=== PATIENT | male | born 1950 ===

== ENCOUNTER 2017-03-11 10:19 | Inpatient (IN) | payer MEDICARE, OTHER ==
--- NOTE | 2017-03-11 11:05 | CT ---
PROCEDURE: CT HEAD WITHOUT CONTRAST. HISTORY: code stroke COMPARISON: None available. TECHNIQUE: Axial computed tomography images were obtained through the head/brain without intravenous contrast. Radiation dose: Total exam DLP = 1210.48 mGy-cm. This CT exam was performed using one or more of the following dose reduction techniques: Automated exposure control, adjustment of the mA and/or kV according to patient size, and/or use of iterative reconstruction technique. FINDINGS: HEMORRHAGE: No intracranial hemorrhage. BRAIN: Diffuse expansion of the ventriculosulcal and cisternal spaces is appreciated with white matter lucency compatible with diffuse cerebral atrophy and chronic microangiopathy. No cortical edema or mass-effect is identified. A small chronic lacune is suspected in the right caudate head. There is no suspicious extra-axial fluid collection. Posterior fossa contents appear grossly nonfocal. VENTRICLES: Unremarkable. No hydrocephalus. CALVARIUM: Unremarkable. PARANASAL SINUSES: Unremarkable as visualized. No significant inflammatory changes. MASTOID AIR CELLS: Unremarkable as visualized. No inflammatory changes. OTHER FINDINGS: None. IMPRESSION: 1. No definite acute intracranial findings including those that might indicate acute or subacute brain infarction at this time. 2. 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 3. Mild age related neuro degenerative change identified. Findings discussed with Dr. East 03/11/2017 at 10:58 a.m. with written down and read back verification.
[2017-03-11 11:23] LABS: BASO # 0.1 K/uL (0.0-0.2); BASO % 1.1 % (0.0-2.0); EOS # 0.4 K/uL (0.0-0.7); EOS % 4.8 % (0.0-4.0); HEMATOCRIT 47.6 % (35.0-51.0); LYMPH % 24.1 % (20.0-40.0); MEAN CELL VOLUME 87.6 fl (80.0-94.0); MEAN CORPUSCULAR HEMOGLOBIN 29.1 pg (27.0-31.0); MEAN CORPUSCULAR HGB CONC 33.2 g/dL (33.0-37.0); MEAN PLATELET VOLUME 9.1 fl (7.2-11.7); MONO # 1.1 K/uL (0.0-0.8); MONO % 12.8 % (0.0-10.0); NEUT # 4.8 K/uL (1.8-7.0); NEUT % 57.2 % (50.0-75.0); NRBC % 0.1 % (0.0-0.0); WHITE BLOOD COUNT 8.4 K/uL (4.8-10.8)
[2017-03-11 11:38] LABS: ALB/GLOB RATIO 1.2 (1.0-2.1); ALKALINE PHOSPHATASE 98 U/L (38-126); ALT/SGPT 46 U/L (21-72); AST/SGOT 46 U/L (17-59); BILIRUBIN,TOTAL 0.7 mg/dl (0.2-1.3); BLOOD UREA NITROGEN 11 mg/dl (9-20); CALCIUM 9.5 mg/dL (8.4-10.2); CARBON DIOXIDE 24 mmol/L (22-30); CHLORIDE 105 mmol/L (98-107); CHOLESTEROL 167 mg/dL (0-199); GFR AFRICAN-AMERICAN > 60; GLUCOSE,RANDOM 95 mg/dL (75-110); POTASSIUM 4.4 MMOL/L (3.6-5.0); SODIUM 141 mmol/l (132-148)
[2017-03-11 11:42] LABS: PARTIAL THROMBOPLASTIN TIME 34.7 Seconds (25.6-37.1)
--- NOTE | 2017-03-11 11:50 | ED PDOC ---
HPI:STROKE - Time Time: 11:15 - Historian Historian: Patient, Family - Chief Complaint Chief Complaint: Weakness, Slurred speech - Onset Onset: This morning - Timing Timing: Currently Symptomatic - Location Location: Speech Locate right:: Upper extremity Locate left: Upper extremity - Radiation Radiation: None - Severity of pain Maximum severity:: Mild Severity Current: Mild - Exacerbated by Exacerbated by:: Nothing - Relieved by Relieved by:: Nothing - TPA Positive for Contraindication: Yes Reason tPA is not being Administered: out of treatment window - Notes: Notes:: pt last seen normal at 6am, per family member at bedside pt is wc bound with all extremity weakness chronically per family meember was at baseline at 6 am, noticed then pt was confused had slurred speech and mild worsening weakness of right ue, usually pt is wc bound NIHSS Stroke Scale - Date/Time Evaluation Performed Date Performed: 03/11/17 Time Performed: 11:15 When Was NIHSS Performed: Baseline - How Severe is the Stroke Level of Consciousness: 1=Drowsy LOC to Questions: 2=Neither correct LOC to commands: 0=Obeys both correctly Best Gaze: 0=Normal Visual: 0=No visual loss Facial: 0=Normal Motor Arm - Left: 0=No drift Motor Arm - Right: 2=Falls before 10 sec Motor Leg - Left: 2=Falls before 5 sec Motor Leg - Right: 2=Falls before 5 sec Limb Ataxia: 0=Absent Best Language: 1=Mild to moderate aphasia Dysarthia: 1=Mild to moderate slurring Extinction & Inattention (Neglect): 0=Normal, no object rTPA Inclusion/Exclusion - Refusal of Treatment Patient Refused Treatment: No - Inclusion Criteria for Altepase Patient is 18 years or Older: Yes The Clinical Diagnosis of Ischemic Stroke That is Causing a Potentially Disabling Neurological Deficit: Yes Time of Onset is Well Established to be Less Than 270 Minute Before Treatment Would Begin: No Risk/Benefit Discussed With Patient/Family Member Present: Yes - Exclusion Criteria for Altepase Uncontrolled Hypertension at Time of Treatment (Systolic BP above 185 or Diastolic BP above 110 mmHg): No Past Medical History Reviewed: Historical Data, Nursing Documentation, Vital Signs Vital Signs: Last Vital Signs Temp Pulse 90 03/11/17 11:07 Resp 19 03/11/17 11:07 BP 132/83 03/11/17 11:07 Pulse Ox 97 03/11/17 11:07 - Medical History PMH: Multiple Sclerosis - Family History Family History: States: Unknown Family Hx - Living Arrangements Living Arrangements: Alone - Home Medications Home Medications: Ambulatory Orders Medication Instructions Recorded Armodafinil 150 mg Tab [Nuvigil 150 mg PO QAM 03/11/17 150 mg Tab] Atorvastatin [Lipitor] 20 mg PO HS 03/11/17 Diclofenac Sodium [Voltaren] 1 appl TOP TID PRN 03/11/17 Ergocalciferol (Vitamin D2) 50,000 unit PO QWK 03/11/17 [Vitamin D2] Ibuprofen [Motrin Tab] 600 mg PO Q8H PRN 03/11/17 Mv,Min10/Folic Acid/D3/Ala/Lut 1 tab PO DAILY 03/11/17 [Strovite One Caplet] Zolpidem [Ambien] 10 mg PO HS 03/11/17 - Allergies Allergies/Adverse Reactions: Allergies Allergy/AdvReac Type Severity Reaction Status Date / Time No Known Allergies Allergy Verified 03/11/17 10:26 Review of Systems Review Of Systems: ROS cannot be obtained secondary to pt's inabilty to answer questions. - Laboratory Results Result Diagrams: 03/11/17 11:18 03/11/17 11:18 - ECG ECG: Positive for: Interpreted By Me ECG Rhythm: Positive for: Normal QRS, Normal ST Segment, Sinus Rhythm. Negative for: ST/T Changes Interpretation Of Abn EKG: rate of 89, no evidence of ischemia O2 Sat by Pulse Oximetry: 97 Pulse Ox Interpretation: Normal - Radiology X-Ray: Interpreted by Me X-Ray Interpretation: No Acute Disease - Progress Re-evaluation Time: 14:00 Condition: Unchanged Medical Decision Making Medical Decision Makin:40 Discussed patient's case with neurologist and chain dyer. Hospitalist agrees to admit patient to the ICU for CVA. pt out of window for tpa and no signs of large vessel occlusion on ct head, per speech eval pt can take meds that are crushed. per Dr watts will give plavix and mag sulfate, pt has agag reflex will admit to icu. Scribe Attestation: Documented by Liliana Montez, acting as a scribe for Rony East MD. Provider Scribe Attestation: All medical record entries made by the Scribe were at my direction and personally dictated by me. I have reviewed the chart and agree that the record accurately reflects my personal performance of the history, physical exam, medical decision making, and the department course for this patient. I have also personally directed, reviewed, and agree with the discharge instructions and disposition. Disposition - Clinical Impression Clinical Impression: CVA (cerebral vascular accident) - Patient ED Disposition Is Patient to be Admitted: Yes Counseled Patient/Family Regarding: Studies Performed, Diagnosis - Disposition Disposition Time: 13:00 Condition: GOOD - Pt Status Changed To: Hospital Disposition Of: Inpatient - Admit Certification Admit to Inpatient:: After my assessment, the patient will require hospitalization for at least two midnights. This is because of the severity of symptoms shown, intensity of services needed, and/or the medical risk in this patient being treated as an outpatient. - POA Present On Arrival: None
[2017-03-11] MEDS ORDERED: Iodixanol 320 MG/ML 100 ML BOTTLE IV ONE (11:58)
[2017-03-11] MEDS ORDERED: Sodium Chloride 0.9% 50 ML IV ONE (11:58)
--- NOTE | 2017-03-11 13:02 | CT ---
PROCEDURE: CT Angiography of the neck with contrast HISTORY: stroke COMPARISON: None available. TECHNIQUE: Contiguous axial images of the neck were obtained from the level of the skull-base to the superior mediastinum in the arteriographic phase of enhancement. Coronal and sagittal reformats or also generated. IV contrast dose: Visipaque 320, 100 cc. Radiation Dose - DLP: 8 184.93 mGy-cm This CT exam was performed using one or more of the following dose reduction techniques: Automated exposure control, adjustment of the mA and/or kV according to patient size, and/or use of iterative reconstruction technique. FINDINGS: RIGHT CAROTID ARTERIES: Common Carotid Artery: Normal. Carotid Bifurcation: Normal. Internal Carotid Artery:Normal. External Carotid Artery (proximal branches): Normal. LEFT CAROTID ARTERIES: Common Carotid Artery: Normal. Carotid Bifurcation: Normal. Internal Carotid Artery:Normal though prominent ectasis is apparent proximally. External Carotid Artery (proximal branches): Normal. VERTEBRAL ARTERIES: Right Vertebral Artery: Normal. Left Vertebral Artery: Normal. Left dominant vertebrobasilar system grossly evident OTHER FINDINGS: None. IMPRESSION: Normal CT Angiography of the neck.
[2017-03-11] MEDS ORDERED: Magnesium Sulfate 2 GM in Sodium Chloride 0.9% 100 ML IVPB ONE (13:38)
[2017-03-11] MEDS ORDERED: Sodium Chloride 0.9% 1,000 ML IV ONE (13:38)
[2017-03-11] MEDS ORDERED: Magnesium Sulfate 2 gm/50 ml 2 GM/50 ML BAG ONE (13:50)
--- NOTE | 2017-03-11 13:50 | RAD ---
HISTORY: Altered mental status. Technique: Single view portable semi erect @ 10:55. COMPARISON: No prior. FINDINGS: LUNGS: No active pulmonary disease. PLEURA: No significant pleural effusion identified, no pneumothorax apparent. CARDIOVASCULAR: No radiographic findings to suggest acute or significant cardiovascular disease. OSSEOUS STRUCTURES: No significant abnormalities. VISUALIZED UPPER ABDOMEN: Normal. OTHER FINDINGS: None. IMPRESSION: No active disease. Concordant results with the preliminary interpretation rendered by the emergency department physician procedure.
--- NOTE | 2017-03-11 13:57 | CP.PCM.CON ---
History of Present Illness - History of Present Illness History of Present Illness: Mr. Castellanos is a 66-year-old man with a past medical history of dyslipidemia, chronic pain, narcolepsy who is wheelchair bound possibly from a previous stroke. He presented today after he was found by one of his friend with worsening confusion and dysarthria. He was found to have difficulty with eye movements as well on exam. Review of Systems - Review of Systems All systems: reviewed and no additional remarkable complaints except Meds Allergies/Adverse Reactions: Allergies Allergy/AdvReac Type Severity Reaction Status Date / Time No Known Allergies Allergy Verified 03/11/17 10:26 Physical Exam - Constitutional Appears: No Acute Distress - Head Exam Head Exam: ATRAUMATIC, NORMAL INSPECTION, NORMOCEPHALIC - Eye Exam Additional comments: bilateral ophthalmoplegia, worse on the left - ENT Exam ENT Exam: Mucous Membranes Moist, Normal Exam - Neck Exam Neck exam: Positive for: Normal Inspection - Respiratory Exam Respiratory Exam: Clear to Auscultation Bilateral, NORMAL BREATHING PATTERN - Cardiovascular Exam Cardiovascular Exam: REGULAR RHYTHM, +S1, +S2 - GI/Abdominal Exam GI & Abdominal Exam: Normal Bowel Sounds, Soft. absent: Tenderness - Rectal Exam Rectal Exam: Deferred - Neurological Exam Neurological exam: Altered Additional comments: Bilateral craniel nerve deficits, worse on the right with ophthalmoplegia and gaze deficits. NIHSS= 10 - Expanded Neurological Exam Expanded Patient oriented to: person Cranial nerves: EOM's Intact: Abnormal Right, Abnormal Left, Facial Sensation: Normal, Nystagmus: Abnormal Right, Tongue Deviation: Normal Ataxia: No (Not able to comply with exam) Sensory exam: Lower Extremity Light Touch: Normal, Upper Extremity Light Touch: Normal Neuro motor strength exam: Left Upper Extremity: 4, Right Upper Extremity: 3, Left Lower Extremity: 4, Right Lower Extremity: 2/1 DTR: Patellar Left: 2+, Patellar Right: 2+ - Psychiatric Exam Psychiatric exam: Normal Mood - Skin Skin Exam: Dry, Intact, Normal Color, Warm Results - Vital Signs Recent Vital Signs: Last Vital Signs Temp Pulse 84 03/11/17 13:23 Resp 19 03/11/17 13:23 BP 140/90 03/11/17 13:23 Pulse Ox 97 03/11/17 11:52 - Labs Result Diagrams: 03/11/17 11:18 03/11/17 11:18 Labs: Laboratory Results - last 24 hr 03/11/17 03/11/17 03/11/17 11:18 11:18 11:18 WBC 8.4 RBC 5.43 Hgb 15.8 Hct 47.6 MCV 87.6 MCH 29.1 MCHC 33.2 RDW 13.0 Plt Count 190 MPV 9.1 Neut % (Auto) 57.2 Lymph % (Auto) 24.1 [place] % (Auto) 12.8 H Eos % (Auto) 4.8 H Baso % (Auto) 1.1 Neut # 4.8 Lymph # 2.0 [place] # 1.1 H Eos # 0.4 Baso # 0.1 PT 13.2 H INR 1.2 APTT 34.7 Sodium 141 Potassium 4.4 Chloride 105 Carbon Dioxide 24 Anion Gap 17 BUN 11 Creatinine 0.8 Est GFR ( Amer) > 60 Est GFR (Non-Af Amer) > 60 Random Glucose 95 Calcium 9.5 Total Bilirubin 0.7 AST 46 ALT 46 Alkaline Phosphatase 98 Troponin I < 0.0120 NT-Pro-B Natriuret Pep 39.7 Total Protein 8.0 Albumin 4.4 Globulin 3.7 Albumin/Globulin Ratio 1.2 Triglycerides 134 Cholesterol 167 LDL Cholesterol Direct 99 HDL Cholesterol 28 L - Imaging and Cardiology CT scan - head Status: Image reviewed by me, Report reviewed by me (No acute findings or vessel occlusions noted on CT and CTA of head/neck.) Assessment & Plan (1) Acute ischemic stroke Assessment and Plan: Based on the clinical exam findings, the patient may have a brainstem infarct. There is no large vessel occlusion on CTA and the last time the patient was known well is not fully known, but he was at his baseline last night. Currently , he has ophthalmoplegia, dysarthria and right side hemiplegia. His NIHSS is a 10, but he is not a candidate for IV tPA or thrombectomy. I recommend the followin. Telemetry and ICU admission for close observation and Q1 hour neuro-checks 2. MRI of the brain without contrast 3. Echocardiogram with bubble study 4. Aspirin 300 mg MI STAT and continue daily 5. Insert NGT if he cannot swallow and give Plavix 300 mg NGT STAT 6. PT/OT eval and treat 7. Check HbA1c, Lipids, B12, folate, Vitamin D, homocysteine, CRP/ESR, Factor V Leiden, prothrombin gene, TSH/T3/T4 8. DVT Px 9. Fluids with NS at 100 mL/hr after 1 liter bolus 10. Case management consult Thank you. Status: Acute Priority: High
[2017-03-11] MEDS ORDERED: Magnesium Sulfate 2 gm/50 ml 2 GM/50 ML BAG IVPB ONE (14:00)
[2017-03-11 14:29] LABS: RBC URINE 1 /hpf (0-3); URINE BILIRUBIN NEGATIVE (NEGATIVE); URINE BLOOD NEGATIVE (NEGATIVE); URINE COLOR YELLOW (YELLOW); URINE GLUCOSE (UA) NEG (Normal); URINE KETONE TRACE mg/dL (NEGATIVE); URINE LEUKOCYTE ESTERASE NEG Leu/uL (Negative); URINE PROTEIN 30 mg/dL (NEGATIVE); URINE UROBILINOGEN 0.2-1.0 mg/dL (0.2-1.0); WBC URINE < 1 /hpf (0-5)
--- NOTE | 2017-03-11 16:31 | CARD ---
APPROVED REPORT EKG Measurement Heart [id number] <Conclusion> Normal sinus rhythm Left anterior fascicular block Moderate voltage criteria for LVH, may be normal variant Abnormal ECG
[2017-03-11] MEDS ORDERED: Pneumococcal 23-Valent Vaccine IM ONE (17:18)
--- NOTE | 2017-03-11 17:58 | CP.PCM.HP ---
History of Present Illness - History of Present Illness History of Present Illness: A 66 year old male, a wheel chair bound, MS was brought by his family member. He was found to have more confused mental status, and mild worsening weakness of right upper extremity. He has dysrarthria too. He is a poor historian. Present on Admission - Present on Admission Any Indicators Present on Admission: No History of DVT/PE: No History of Uncontrolled Diabetes: No Urinary Catheter: No Decubitus Ulcer Present: No Review of Systems - Cardiovascular Cardiovascular: absent: Chest Pain - Respiratory Respiratory: absent: Cough - Gastrointestinal Gastrointestinal: absent: Nausea, Vomiting Past Patient History - Past Social History Smoking Status: Never Smoked - NEUROLOGICAL Hx Neurological Disorder: Yes - MUSCULOSKELETAL/RHEUMATOLOGICAL Hx Falls: No - PSYCHIATRIC Hx Substance Use: No - SURGICAL HISTORY Hx Surgeries: No - ANESTHESIA Hx Anesthesia: No Meds Allergies/Adverse Reactions: Allergies Allergy/AdvReac Type Severity Reaction Status Date / Time No Known Allergies Allergy Verified 03/11/17 10:26 Physical Exam - Constitutional Appears: No Acute Distress - Neck Exam Neck exam: Positive for: Full Rom - Respiratory Exam Respiratory Exam: Clear to Auscultation Bilateral, NORMAL BREATHING PATTERN. absent: Wheezes - Cardiovascular Exam Cardiovascular Exam: REGULAR RHYTHM. absent: Systolic Murmur - GI/Abdominal Exam GI & Abdominal Exam: Normal Bowel Sounds, Soft. absent: Tenderness ( contracture of right hand, weakness of right lower extermity and right upper extremity) Results - Vital Signs Recent Vital Signs: Last Vital Signs Temp 98.7 F 03/11/17 15:24 Pulse 86 03/11/17 15:24 Resp 14 03/11/17 16:49 BP 130/78 03/11/17 15:24 Pulse Ox 97 03/11/17 14:57 - Labs Result Diagrams: 03/11/17 11:18 03/11/17 11:18 Labs: Laboratory Results - last 24 hr 03/11/17 03/11/17 03/11/17 11:18 11:18 11:18 WBC 8.4 RBC 5.43 Hgb 15.8 Hct 47.6 MCV 87.6 MCH 29.1 MCHC 33.2 RDW 13.0 Plt Count 190 MPV 9.1 Neut % (Auto) 57.2 Lymph % (Auto) 24.1 [place] % (Auto) 12.8 H Eos % (Auto) 4.8 H Baso % (Auto) 1.1 Neut # 4.8 Lymph # 2.0 [place] # 1.1 H Eos # 0.4 Baso # 0.1 PT 13.2 H INR 1.2 APTT 34.7 Sodium 141 Potassium 4.4 Chloride 105 Carbon Dioxide 24 Anion Gap 17 BUN 11 Creatinine 0.8 Est GFR ( Amer) > 60 Est GFR (Non-Af Amer) > 60 Random Glucose 95 Hemoglobin A1c Calcium 9.5 Total Bilirubin 0.7 AST 46 ALT 46 Alkaline Phosphatase 98 Troponin I < 0.0120 NT-Pro-B Natriuret Pep 39.7 Total Protein 8.0 Albumin 4.4 Globulin 3.7 Albumin/Globulin Ratio 1.2 Triglycerides 134 Cholesterol 167 LDL Cholesterol Direct 99 HDL Cholesterol 28 L Urine Color Urine Clarity Urine pH Ur Specific [place] Urine Protein Urine Glucose (UA) Urine Ketones Urine Blood Urine Nitrate Urine Bilirubin Urine Urobilinogen Ur Leukocyte Esterase Urine RBC (Auto) Urine Microscopic WBC 03/11/17 03/11/17 11:19 14:00 WBC RBC Hgb Hct MCV MCH MCHC RDW Plt Count MPV Neut % (Auto) Lymph % (Auto) [place] % (Auto) Eos % (Auto) Baso % (Auto) Neut # Lymph # [place] # Eos # Baso # PT INR APTT Sodium Potassium Chloride Carbon Dioxide Anion Gap BUN Creatinine Est GFR ( Amer) Est GFR (Non-Af Amer) Random Glucose Hemoglobin A1c 6.0 Calcium Total Bilirubin AST ALT Alkaline Phosphatase Troponin I NT-Pro-B Natriuret Pep Total Protein Albumin Globulin Albumin/Globulin Ratio Triglycerides Cholesterol LDL Cholesterol Direct HDL Cholesterol Urine Color Yellow Urine Clarity Clear Urine pH 6.0 Ur Specific [place] 1.055 H Urine Protein 30 Urine Glucose (UA) Neg Urine Ketones Trace Urine Blood Negative Urine Nitrate Negative Urine Bilirubin Negative Urine Urobilinogen 0.2-1.0 Ur Leukocyte Esterase Neg Urine RBC (Auto) 1 Urine Microscopic WBC < 1 Assessment & Plan - Assessment and Plan (Free Text) Assessment: A 66 year old male with history of MS came for worsening mental confusion, right side weakness R/O CVA Plan: neuro check aspirin, plavix neurology consult. - Date & Time Date: 03/11/17 Time: 18:01
--- NOTE | 2017-03-11 21:33 | CON ---
CRITICAL CARE CONSULTATION DATE: 03/11/2017 LOCATION: The patient in the ER, being admitted to ICU at the request of Neurology consult and ER physician. HISTORY OF PRESENT ILLNESS: Events in ER reviewed with ER physician. Consultation note by Dr. Rendon noted. History also discussed with family member, who takes care of the patient. The patient's niece is at the beside. The patient is able to recognize relative. As per discussion with family, Mr. Castellanos is a 66-year-old male of [place] origin. Medical history is significant for hyperlipidemia, multiple sclerosis with resultant weakness of the right arm and right leg, also known to have narcolepsy. The patient is wheelchair bound, noted to be alert, awake until this morning. The patient's family member who takes care of the patient left to [facility] for a planned surgery. A friend of family found the patient to be aphasic and not able to express with weakness of the right arm and right leg. EMS was called, brought to emergency room. Code stroke was not called. A CT obtained showed no acute abnormality. His CT head also showed no vascular occlusion. The patient has no history of diabetes, hypertension, cardiac arrhythmias. The patient's home medications include Nuvigil 150 mg in the morning, atorvastatin 20 mg at night, Voltaren 100 mg gel 1 application topical 3 times daily, vitamin D2 61844 units 1 capsule daily, morphine 600 mg p.o. every 8 hours, multivitamin with minerals, folic acid 1 tablet daily, zolpidem 10 mg at night. ALLERGIES: NO KNOWN ALLERGIES. FAMILY HISTORY: Negative. SOCIAL HISTORY: Negative for alcohol abuse, drug abuse or any other recreational drug usage. The patient was seen by neurology consult. Examination noted ophthalmoplegia with difficulty with eye movements and gaze is somewhat NIHSS 10. No TPA is given as the patient is not a candidate and the timeframe was not clearly defined. The patient remains alert, awake, able to follow commands, able to follow family member, but not able to verbalize. Speech is some slurred, but able to follow commands appropriately. PHYSICAL EXAMINATION: VITAL SIGNS: Respiratory rate 19, saturation 97%, blood pressure 132/83, pulse rate 90. Temperature is to be recorded. HEAD, EYES, EARS, NOSE AND THROAT: Atraumatic, normocephalic, reduced movement on the left compared to right eye. Oral mucosa is moist. NEUROLOGIC EXAMINATION: Cranial nerves intact. No tongue deviation. No ataxia. No sensory impairment. Deep tendon reflexes are patellar, left 2+, right 2+. Motor strength, left upper extremity 4, right upper extremity 3, left lower extremity 4, right lower extremity 2 to 1. Skin without rash. LABORATORY DATA: WBC 8.4, hemoglobin 15.8, hematocrit 47.6, platelet count 190. SMA-7: Sodium 141, potassium 4.4, chloride of 105, CO2 is 24, blood urea nitrogen 11, creatinine 0.8, glucose 95. CT head and CTA of the head and neck are unremarkable. IMPRESSION: A 66 year old male with history of multiple sclerosis, weakness of right arm and right leg, presenting with sudden onset of dysarthria. No history of previous cardiac arrhythmias, known to have narcolepsy, on Nuvigil. CT head and CTA negative, but given the examination with ophthalmoplegia, dysarthria, and right sided hemiplegia, suspected brain stem infarct, given aspirin and magnesium as per Neurology consult. Admitted to ICU for further observation and followup. Plan is to give aspirin 300 mg per rectum stat and continue Plavix 300 mg daily. OT, PT evaluation. Followup hemoglobin A1c, lipid, B12, folate, vitamin D, homocysteine, CRP, ESR, factor V Leiden antigen, prothrombin gene, PS, T3, and T4. No respiratory compromise noted now. We will obtain a swallow evaluation. Eduar Hill MD [facility] HEALTHRomina
[2017-03-11 22:23] LABS: THYROID STIMULATING HORMONE 1.93 mIU/ML (0.46-4.68)
[2017-03-12 05:21] LABS: MEAN CELL VOLUME 86.1 fl (80.0-94.0); MEAN CORPUSCULAR HEMOGLOBIN 29.4 pg (27.0-31.0); MEAN CORPUSCULAR HGB CONC 34.2 g/dL (33.0-37.0); RED CELL DISTRIBUTION WIDTH 12.7 % (11.5-14.5); WHITE BLOOD COUNT 8.3 K/uL (4.8-10.8)
[2017-03-12 05:51] VITALS: BMI 22.0
[2017-03-12 05:55] LABS: BLOOD UREA NITROGEN 11 mg/dl (9-20); CALCIUM 8.8 mg/dL (8.4-10.2); CARBON DIOXIDE 27 mmol/L (22-30); CHLORIDE 106 mmol/L (98-107); GFR AFRICAN-AMERICAN > 60; GLUCOSE,RANDOM 106 mg/dL (75-110); POTASSIUM 4.1 MMOL/L (3.6-5.0); SODIUM 142 mmol/l (132-148)
[2017-03-12] MEDS: Sodium Chloride 0.9% 1,000 ML IV SCH ×2 (06:27→18:05)
--- NOTE | 2017-03-12 09:15 | CP.PCM.PN ---
Subjective - Date & Time of Evaluation Date of Evaluation: 03/12/17 Time of Evaluation: 09:12 - Subjective Subjective: Emanuel was seen and examined at the bedside. He still has dysarthia but much improved from yesterday. His mentation is also improved, able to follow commands such as raising his extremities. He is able to tolerate PO medications with no signs of aspiration. He is not in any kind of distress. There was no untoward events overnight. Objective - Vital Signs/Intake and Output Vital Signs (last 24 hours): Temp Pulse Resp BP Pulse Ox 98.8 F 85 12 125/61 95 03/12/17 08:00 03/12/17 08:00 03/12/17 08:00 03/12/17 08:00 03/12/17 08:00 Intake and Output: 03/12/17 03/12/17 06:59 18:59 Intake Total 100 120 Output Total 500 Balance -400 120 - Medications Medications: Current Medications Aspirin (Aspirin) 325 mg PO DAILY [facility] Last Admin: 03/12/17 08:57 Dose: 325 mg Clopidogrel Bisulfate (Plavix) 75 mg PO DAILY [facility] Last Admin: 03/12/17 08:57 Dose: 75 mg Sodium Chloride (Sodium Chloride 0.9%) 1,000 mls @ 100 mls/hr IV .Q10H [facility] Stop: 03/13/17 06:19 Last Admin: 03/12/17 06:27 Dose: 100 mls/hr - Labs Labs: 03/12/17 04:55 03/12/17 04:55 PT 13.2 Seconds (9.8-13.1) H 03/11/17 11:18 INR 1.2 (0.9-1.2) 03/11/17 11:18 APTT 34.7 Seconds (25.6-37.1) 03/11/17 11:18 - Constitutional Appears: No Acute Distress - Head Exam Head Exam: ATRAUMATIC, NORMAL INSPECTION, NORMOCEPHALIC - Eye Exam Eye Exam: PERRL Pupil Exam: NORMAL ACCOMODATION - Neurological Exam Neurological Exam: Alert, Awake Neuro motor strength exam: Left Upper Extremity: 4, Right Upper Extremity: 3, Right Lower Extremity: 3 Additional comments: He has the right side weakness and sensation is asymmetrical. He is able to follow commands such as finger accommodation, raising his extremities, but unable to do finger to nose test. Assessment and Plan (1) CVA (cerebral vascular accident) Assessment & Plan: Case discussed with Dr. Rendon, will follow up echocardiogram with bubble study. Recommend MRI of the brain without contrast, DVT prophylaxis. Status: Acute
--- NOTE | 2017-03-12 11:45 | MRI ---
PROCEDURE: MRI BRAIN WITHOUT CONTRAST HISTORY: Stroke COMPARISON: Noncontrast head CT from 03/11/2017. TECHNIQUE: Multiplanar, multisequence MR images of the brain were obtained without intravenous contrast enhancement. FINDINGS: HEMORRHAGE: None DWI: No evidence of an acute or early subacute infarction. BRAIN PARENCHYMA: There are moderate chronic microangiopathic changes. There is no mass, mass effect or abnormal extra-axial fluid collection. There is no territorial infarction. The midline sagittal structures are normal. VENTRICLES: There is moderate age-related global parenchymal volume loss and proportionate enlargement of the ventricles and cortical sulci. . CRANIUM: There is normal bone marrow signal pattern. ORBITS: Grossly unremarkable. PARANASAL SINUSES/MASTOIDS: Predominantly clear. VASCULAR SYSTEM: There are normal signal voids in the larger intracranial arteries. OTHER FINDINGS: None. IMPRESSION: No acute intracranial abnormality. Moderate chronic microangiopathic changes and moderate age-related global parenchymal volume loss.
[2017-03-12 13:11] LABS: FOLATE > 20.0 ng/mL
--- NOTE | 2017-03-12 13:37 | US ---
PROCEDURE: Duplex ultrasound of the carotid and vertebral arteries. HISTORY: cva COMPARISON: None available. TECHNIQUE: Grayscale and duplex Doppler evaluation of the cervical carotid and vertebral arteries were performed. The common carotid, carotid bifurcations and cervical ICA and proximal ECA were evaluated. The vertebral arteries were evaluated for gross patency and direction. FINDINGS: RIGHT CAROTID ARTERIES: Common Carotid Artery: Normal. Maximal flow velocity of 88.0 cm/s. Carotid Bifurcation: Normal. Internal Carotid Artery:Heterogeneous plaque formation. tortuous ICA Maximal flow velocity of 74.4 cm/s. External Carotid Artery (proximal branches): Normal. Maximal flow velocity of 104.6 cm/s. ICA/CCA Ratio: 1.2 LEFT CAROTID ARTERIES: Common Carotid Artery: Normal. Maximal flow velocity of 82.2 cm/s. Carotid Bifurcation: Normal. Internal Carotid Artery:Heterogeneous plaque formation. tortuous ICA Maximal flow velocity of 75.2 cm/s. External Carotid Artery (proximal branches): Normal. Maximal flow velocity of 84.5 cm/s. ICA/CCA Ratio: 0.9 VERTEBRAL ARTERIES: Right Vertebral Artery: Patent. Antegrade flow. Left Vertebral Artery: Patent. Antegrade flow. OTHER FINDINGS: None. IMPRESSION: Right ICA degree of stenosis: Less than 50% Left ICA degree of stenosis: Less than 50% Reference Internal Carotid Artery (ICA) Peak Systolic Velocity (PSV) for above: 1. Less than 50% stenosis less than 125 cm/s peak systolic velocity 2. 50-69% stenosis 125-230cm/s peak systolic velocity 3. Greater than 70% but less than near occlusion greater than 230 cm/s peak systolic velocity
--- NOTE | 2017-03-12 13:37 | US ---
PROCEDURE: Bilateral lower extremity venous duplex Doppler. HISTORY: r/o dvt COMPARISON: None available. TECHNIQUE: Bilateral common femoral, superficial femoral, popliteal and posterior tibial veins were evaluated. Flow was assessed with color Doppler, compressibility, assessment of phasic flow and augmentation response. FINDINGS: COMMON FEMORAL VEIN: Right CFV: Unremarkable. Left CFV: Unremarkable. SUPERFICIAL FEMORAL VEIN: Right SFV: Unremarkable. Left SFV: Unremarkable. POPLITEAL VEIN: Right Popliteal: Unremarkable. Left Popliteal: Unremarkable. POSTERIOR TIBIAL VEIN: Right PTV: Unremarkable. Left PTV: Unremarkable. OTHER FINDINGS: None. IMPRESSION: No evidence of deep venous thrombosis.
--- NOTE | 2017-03-12 15:48 | PN ---
CRITICAL CARE PROGRESS NOTE DATE: 03/12/2017 LOCATION: Patient in ICU, bed 427. TIME SPENT: 35 minutes. SUBJECTIVE: The patient is seen and evaluated at the bedside. Case was discussed in detail in multidisciplinary ICU rounds in the morning. The patient's past medical, surgical, and social history noted. A 66-year-old male with history significant for multiple sclerosis, narcolepsy, hyperlipidemia, admitted through emergency room after he was noted to be dysarthric, having weakness compared to his baseline, right-sided weakness, unsure if patient had seizure. Initial CT head and CTA neck showed no acute abnormality, suspected brain stem stroke. Admitted to ICU, given magnesium, aspirin, and Plavix. Overnight, normotensive and afebrile. Vital signs are unremarkable. 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 The patient remains lethargic. Denies headache, shortness of breath, chest pain, palpitation. No abdominal discomfort, no diarrhea, no dysuria. Weakness of his right arm and right leg persist. Increased strength and movement of the left upper arm and left leg. PHYSICAL EXAMINATION: VITAL SIGNS: Temperature 98.8, heart rate 85 and regular, blood pressure 125/61, respiratory rate 12 to 28, saturation 95% on room air. Intake 100 mL, output 500, negative balance 400. Weight 145 pounds. HEAD, EYES, EARS, NOSE, AND THROAT: Pupils reactive. Conjunctivae pink. Sclerae white. No nystagmus. NECK: Supple. Tracheal central. CHEST: Bilateral breath sounds, clear to auscultation. HEART: Rhythm regular. S1 and S2 normal. No S3, S4, or gallop. No audible murmur. ABDOMEN: Bowel sounds present, soft. Liver and spleen not palpable. Bladder not distended. EXTREMITIES: No clubbing, cyanosis. Mild contraction on the right hand. NEUROLOGIC: 4/5 on left upper and left lower extremities, 1-2/5 right upper and lower extremities. Deep tendon reflexes 2+ bilaterally. Plantar equivocal on the right, down on the left. CURRENT MEDICATIONS: Include aspirin 325 mg p.o. daily, Plavix 75 mg p.o. daily, atorvastatin 20 mg p.o. daily, sodium chloride at 100 mL per hour. LABORATORY DATA: WBC 8.3, hemoglobin 14, hematocrit 41, platelet count 179. SMA-7: Sodium 142, potassium 4.1, chloride 106, CO2 of 27, blood urea nitrogen 11, creatinine 0.8, random glucose 106, calcium 8.8. Vitamin B12 664. Folate pending. TSH 1.93, LDL 99, HDL 28, triglycerides 134. Microbiology: No growth reported. CTA neck and head negative. CT head negative. Chest x-ray unremarkable. MRI of brain report pending. IMPRESSION: 1. Neurology, status post suspected brain stem stroke. However, the patient remains much more wakeful, but persistent dysarthria, able to comprehend well, unsure whether the patient had seizure and remained postictal, but for dysarthria. Patient is seen by Neurology and EEG requested for further evaluation to rule out seizure. 2. Cardiac: No arrhythmia noted during the night. He remains normotensive. 3. Pulmonary: No sign of aspiration pneumonia. Seen by Speech and Swallow evaluation. Diet advanced to soft mechanical diet with nectar thick liquid. Continue to closely monitor for aspiration. 4. Gastrointestinal: Unremarkable. History of multiple sclerosis is stable at his baseline, associated narcolepsy, on Nuvigil, not available informulary in the hospital. May request to have patient bring his own medications and continue the same chronic pain related to his weakness of his right arm and right leg. Continue home medications including Voltaren gel 1 application topically 3 times daily and Motrin 600 mg p.o. q. 8 hours. Eduar Hill MD
--- NOTE | 2017-03-12 19:12 | CP.PCM.PN ---
Subjective - Date & Time of Evaluation Date of Evaluation: 03/12/17 Time of Evaluation: 19:09 - Subjective Subjective: feels better than yesterday he was moved to telemetry from the ICU Objective - Vital Signs/Intake and Output Vital Signs (last 24 hours): Temp Pulse Resp BP Pulse Ox 98.7 F 90 22 157/85 H 97 03/12/17 16:00 03/12/17 18:00 03/12/17 18:00 03/12/17 18:00 03/12/17 18:00 Intake and Output: 03/12/17 03/13/17 18:59 06:59 Intake Total 1240 Output Total 1000 Balance 240 - Medications Medications: Current Medications Aspirin (Aspirin) 325 mg PO DAILY [facility] Last Admin: 03/12/17 08:57 Dose: 325 mg Atorvastatin Calcium (Lipitor) 20 mg PO DAILY [facility] Last Admin: 03/12/17 12:50 Dose: 20 mg Clopidogrel Bisulfate (Plavix) 75 mg PO DAILY [facility] Last Admin: 03/12/17 08:57 Dose: 75 mg Sodium Chloride (Sodium Chloride 0.9%) 1,000 mls @ 100 mls/hr IV .Q10H [facility] Stop: 03/13/17 06:19 Last Admin: 03/12/17 18:05 Dose: 100 mls/hr Ibuprofen (Motrin Tab) 800 mg PO Q8 PRN PRN Reason: PAIN - Labs Labs: 03/12/17 04:55 03/12/17 04:55 PT 13.2 Seconds (9.8-13.1) H 03/11/17 11:18 INR 1.2 (0.9-1.2) 03/11/17 11:18 APTT 34.7 Seconds (25.6-37.1) 03/11/17 11:18 - Constitutional Appears: No Acute Distress - Neck Exam Neck Exam: Full ROM - Respiratory Exam Respiratory Exam: Clear to Ausculation Bilateral, NORMAL BREATHING PATTERN - Cardiovascular Exam Cardiovascular Exam: REGULAR RHYTHM. absent: Murmur - GI/Abdominal Exam GI & Abdominal Exam: Soft, Normal Bowel Sounds. absent: Tenderness - Extremities Exam Extremities Exam: Normal Inspection (mild right side weakness) - Neurological Exam Neurological Exam: Alert, Awake Neuro motor strength exam: Left Upper Extremity: 5, Right Upper Extremity: 4, Left Lower Extremity: 5, Right Lower Extremity: 4 Assessment and Plan - Assessment and Plan (Free Text) Assessment: as per neurology, dysarthria improved brain MRI - no infarct history of MS right side weakness Plan: PT and OT neurology follow up.
[2017-03-13] MEDS: Sodium Chloride 0.9% 1,000 ML IV SCH (03:16)
[2017-03-13 05:16] LABS: HOMOCYSTEINE 5.5 umol/L (<11.4)
--- NOTE | 2017-03-13 07:59 | PQF GENQUE ---
Dr Lopez, Suspected Brain Stem Stroke ruled in or ruled out? OR: Other explanation of clinical finding H and P:hx. of MS came for worsening mental confusion, right side weakness R/ O CVA Neuro consult: (1) Acute ischemic stroke ; Assessment and Plan: Based on the clinical exam findings, the patient may have a brainstem infarct. There is no large vessel occlusion on CTA and the last time the patient was known well is not fully known, but he was at his baseline last night. Currently, he has ophthalmoplegia, dysarthria and right side hemiplegia. His NIHSS is a 10, but he is not a candidate for IV tPA or thrombectomy 03/12 [place] note; Neuro: S/P suspected brain stem stroke; remains much more wakeful, but persistent dysarthria, able to comprehend well, unsure whether the pt. had seizure and remained postictal, but for dysarthria; is seen by Neurology and EEG requested for further eval. to rule out seizure. 03/12 progress note of attending: brain MRI- no infarct neuro check, aspirin, plavix for echo with bubble study This form is a permanent part of the medical record Clarification of your documentation is requested to better reflect the severity of illness and intensity of treatment of your patient. Indicators present [] Specify: [] [] Specify: [] [] Specify: [] [] Specify: [] Location in the medical record that reflects the above clinical findings: [] Treatment Provided: [] PHYSICIAN'S RESPONSE Based on your medical judgment of the clinical indicators outlined above please clarify the following: [] Practitioner response [] If unable to determine, please check the box, sign and date. Present On Admission (POA) Indicator: [] Present at the time of admission [] Not present at the time of admission [] Clinically Undetermined In responding to this query, please exercise your independent professional judgment. The fact that a question is asked does not imply that any particular answer is desired or expected. Thank you for your clarification on this documentation. If you have any questions please call. * Thank you, Niurka Carlos RN ext. #[phone]:Annamarie Lundberg RN MTDRomina
--- NOTE | 2017-03-13 08:03 | CP.PCM.PN ---
Subjective - Date & Time of Evaluation Date of Evaluation: 03/13/17 Time of Evaluation: 08:01 - Subjective Subjective: no complaint transferred from ICU yesterday night Objective - Vital Signs/Intake and Output Vital Signs (last 24 hours): Temp Pulse Resp BP Pulse Ox 98.2 F 78 18 151/67 H 98 03/13/17 05:13 03/13/17 05:13 03/13/17 05:13 03/13/17 05:13 03/13/17 05:13 Intake and Output: 03/13/17 03/13/17 06:59 18:59 Intake Total 1440 Output Total 800 Balance 640 - Medications Medications: Current Medications Aspirin (Aspirin) [address] [facility] Last Admin: 03/12/17 08:57 Dose: 325 mg Atorvastatin Calcium (Lipitor) [address] [facility] Last Admin: 03/12/17 12:50 Dose: 20 mg Clopidogrel Bisulfate (Plavix) [address] [facility] Last Admin: 03/12/17 08:57 Dose: 75 mg Ibuprofen (Motrin Tab) 800 mg PO Q8 PRN PRN Reason: PAIN - Labs Labs: 03/12/17 04:55 03/12/17 04:55 PT 13.2 Seconds (9.8-13.1) H 03/11/17 11:18 INR 1.2 (0.9-1.2) 03/11/17 11:18 APTT 34.7 Seconds (25.6-37.1) 03/11/17 11:18 - Constitutional Appears: No Acute Distress - Respiratory Exam Respiratory Exam: Clear to Ausculation Bilateral, NORMAL BREATHING PATTERN - Cardiovascular Exam Cardiovascular Exam: REGULAR RHYTHM. absent: Murmur - GI/Abdominal Exam GI & Abdominal Exam: Soft. absent: Tenderness - Neurological Exam Neurological Exam: Motor Sensory Deficit (mild right side weakness) Assessment and Plan - Assessment and Plan (Free Text) Assessment: history of MS came with dysarthria and more mental confusion history of stroke improving mental status Plan: neurology follow up consult PT evaluation continue aspirin, lipitor and plavix
--- NOTE | 2017-03-13 08:20 | CP.PCM.PN ---
Subjective - Date & Time of Evaluation Date of Evaluation: 03/13/17 Time of Evaluation: 08:17 - Subjective Subjective: Mr. Castellanos was seen and examined at the bedside. He is more alert and denies any headache, dizziness, nausea, or vomiting. He was able to verbalize clear words such as "ayaka, no dolor." He is able to follow commands. There is no untoward events overnight. Objective - Vital Signs/Intake and Output Vital Signs (last 24 hours): Temp Pulse Resp BP Pulse Ox 98.2 F 78 18 136/80 98 03/13/17 08:10 03/13/17 08:10 03/13/17 08:10 03/13/17 08:10 03/13/17 08:10 Intake and Output: 03/13/17 03/13/17 06:59 18:59 Intake Total 1440 Output Total 800 Balance 640 - Medications Medications: Current Medications Aspirin (Aspirin) 325 mg PO DAILY [facility] Last Admin: 03/12/17 08:57 Dose: 325 mg Atorvastatin Calcium (Lipitor) 20 mg PO DAILY [facility] Last Admin: 03/12/17 12:50 Dose: 20 mg Clopidogrel Bisulfate (Plavix) 75 mg PO DAILY [facility] Last Admin: 03/12/17 08:57 Dose: 75 mg Ibuprofen (Motrin Tab) 800 mg PO Q8 PRN PRN Reason: PAIN - Labs Labs: 03/12/17 04:55 03/12/17 04:55 PT 13.2 Seconds (9.8-13.1) H 03/11/17 11:18 INR 1.2 (0.9-1.2) 03/11/17 11:18 APTT 34.7 Seconds (25.6-37.1) 03/11/17 11:18 - Constitutional Appears: No Acute Distress - Head Exam Head Exam: ATRAUMATIC, NORMAL INSPECTION, NORMOCEPHALIC - Neurological Exam Neurological Exam: Awake Neuro motor strength exam: Left Upper Extremity: 4, Right Upper Extremity: 4, Left Lower Extremity: 5, Right Lower Extremity: 3 Additional comments: He is able to to answer question appropriately with dysarthia improved from previous examination. He is also able to follow commands. There is a minimal left arm drift. Assessment and Plan (1) CVA (cerebral vascular accident) Assessment & Plan: Case discussed with Dr. Rendon, continue all current medical, physical, occupational, and speech therapies. There is no new recommendation from neurology. Status: Acute
--- NOTE | 2017-03-14 13:29 | CP.PCM.PN ---
Subjective - Date & Time of Evaluation Date of Evaluation: 03/14/17 Time of Evaluation: 13:25 - Subjective Subjective: Mr. Castellanos was seen and examined at the bedside. He is level of alertness improved from previous examination. He is able to verbalize few clear words such as "Buenas mistry. inés,no dolor." He denies any headache, dizziness, lightheadedness, nausea, vomiting. He denies pain , blurred vision on his right eye.He was able to consume most of his breakfast with no signs of aspiration. There was no untoward events overnight. Objective - Vital Signs/Intake and Output Vital Signs (last 24 hours): Temp Pulse Resp BP Pulse Ox 98.3 F 74 18 130/69 95 03/14/17 12:46 03/14/17 12:46 03/14/17 12:46 03/14/17 12:46 03/14/17 12:46 - Medications Medications: Current Medications Aspirin (Ecotrin) 81 mg PO DAILY [facility] Atorvastatin Calcium (Lipitor) 20 mg PO DAILY [facility] Last Admin: 03/14/17 09:01 Dose: 20 mg Clopidogrel Bisulfate (Plavix) 75 mg PO DAILY [facility] Last Admin: 03/14/17 09:01 Dose: 75 mg Ibuprofen (Motrin Tab) 800 mg PO Q8 PRN PRN Reason: PAIN - Labs Labs: 03/12/17 04:55 03/12/17 04:55 PT 13.2 Seconds (9.8-13.1) H 03/11/17 11:18 INR 1.2 (0.9-1.2) 03/11/17 11:18 APTT 34.7 Seconds (25.6-37.1) 03/11/17 11:18 - Constitutional Appears: No Acute Distress - Head Exam Head Exam: ATRAUMATIC, NORMAL INSPECTION, NORMOCEPHALIC - Eye Exam Additional comments: With noted blood stain sclerae on the right eye. - Exam Additional comments: with hematuria noted in his vazquez catheter. - Neurological Exam Neurological Exam: Alert, Awake Neuro motor strength exam: Left Upper Extremity: 4, Right Upper Extremity: 3, Left Lower Extremity: 3, Right Lower Extremity: 3 Additional comments: He is still unable to do finger to nose test, but able to do finger accommodation. Sensation is intact Assessment and Plan (1) TIA (transient ischemic attack) Assessment & Plan: Case discussed with Dr. Rendon, to do platelet verification, ARU, and PRU due to blood in his right sclerae and hematuria. Decrease aspirin form 325 mg to 81 mg PO daily. Status: Acute
--- NOTE | 2017-03-14 14:44 | CP.PCM.PN ---
Subjective - Date & Time of Evaluation Date of Evaluation: 03/14/17 Time of Evaluation: 14:42 - Subjective Subjective: no pain lying on bed alert, awake Objective - Vital Signs/Intake and Output Vital Signs (last 24 hours): Temp Pulse Resp BP Pulse Ox 98.3 F 74 18 130/69 95 03/14/17 12:46 03/14/17 12:46 03/14/17 12:46 03/14/17 12:46 03/14/17 12:46 - Medications Medications: Current Medications Aspirin (Ecotrin) 81 mg PO DAILY [facility] Atorvastatin Calcium (Lipitor) 20 mg PO DAILY [facility] Last Admin: 03/14/17 09:01 Dose: 20 mg Clopidogrel Bisulfate (Plavix) 75 mg PO DAILY [facility] Last Admin: 03/14/17 09:01 Dose: 75 mg Ibuprofen (Motrin Tab) 800 mg PO Q8 PRN PRN Reason: PAIN - Labs Labs: 03/12/17 04:55 03/12/17 04:55 PT 13.2 Seconds (9.8-13.1) H 03/11/17 11:18 INR 1.2 (0.9-1.2) 03/11/17 11:18 APTT 34.7 Seconds (25.6-37.1) 03/11/17 11:18 - Constitutional Appears: No Acute Distress - Respiratory Exam Respiratory Exam: Clear to Ausculation Bilateral, NORMAL BREATHING PATTERN - Cardiovascular Exam Cardiovascular Exam: REGULAR RHYTHM. absent: Murmur Assessment and Plan - Assessment and Plan (Free Text) Assessment: TIA history of MS CVA was ruled out by negative brain MRI Plan: Echocardiogram was done today. will check the result. As per neuro, aspirin was decreased from 325 to 81 mg a day. PT
[2017-03-14 15:09] LABS: HEMATOCRIT 42.9 % (35.0-51.0); MEAN CELL VOLUME 85.7 fl (80.0-94.0); MEAN CORPUSCULAR HEMOGLOBIN 28.8 pg (27.0-31.0); MEAN CORPUSCULAR HGB CONC 33.6 g/dL (33.0-37.0); RED CELL DISTRIBUTION WIDTH 12.5 % (11.5-14.5); WHITE BLOOD COUNT 6.7 K/uL (4.8-10.8)
[2017-03-14 15:51] LABS: BLOOD UREA NITROGEN 10 mg/dl (9-20); CALCIUM 8.8 mg/dL (8.4-10.2); CARBON DIOXIDE 24 mmol/L (22-30); CHLORIDE 105 mmol/L (98-107); GFR AFRICAN-AMERICAN > 60; GLUCOSE,RANDOM 118 mg/dL (75-110); POTASSIUM 3.8 MMOL/L (3.6-5.0); SODIUM 143 mmol/l (132-148)
--- NOTE | 2017-03-15 07:38 | CP.PCM.PN ---
Subjective - Date & Time of Evaluation Date of Evaluation: 03/15/17 Time of Evaluation: 07:36 - Subjective Subjective: no pain improving mental confusion with a vazquez Objective - Vital Signs/Intake and Output Vital Signs (last 24 hours): Temp Pulse Resp BP Pulse Ox 97.6 F 88 18 124/75 96 03/15/17 05:13 03/15/17 05:13 03/15/17 05:13 03/15/17 05:13 03/15/17 05:13 Intake and Output: 03/15/17 03/15/17 06:59 18:59 Intake Total 420 Output Total 300 Balance 120 - Medications Medications: Current Medications Aspirin (Ecotrin) 81 mg PO DAILY [facility] Last Admin: 03/14/17 17:33 Dose: Not Given Atorvastatin Calcium (Lipitor) 20 mg PO DAILY [facility] Last Admin: 03/14/17 09:01 Dose: 20 mg Clopidogrel Bisulfate (Plavix) 75 mg PO DAILY [facility] Last Admin: 03/14/17 09:01 Dose: 75 mg Ibuprofen (Motrin Tab) 800 mg PO Q8 PRN PRN Reason: PAIN - Labs Labs: 03/14/17 14:30 03/14/17 14:30 PT 13.2 Seconds (9.8-13.1) H 03/11/17 11:18 INR 1.2 (0.9-1.2) 03/11/17 11:18 APTT 34.7 Seconds (25.6-37.1) 03/11/17 11:18 - Constitutional Appears: No Acute Distress - Eye Exam Eye Exam: Conjunctival injection (right eye, temporal side, subconjunctival hemorrhage) - Respiratory Exam Respiratory Exam: Clear to Ausculation Bilateral, NORMAL BREATHING PATTERN - Cardiovascular Exam Cardiovascular Exam: REGULAR RHYTHM. absent: Murmur - GI/Abdominal Exam GI & Abdominal Exam: Soft, Normal Bowel Sounds. absent: Tenderness - Neurological Exam Neurological Exam: Alert, Awake Neuro motor strength exam: Left Upper Extremity: 5, Right Upper Extremity: 5, Left Lower Extremity: 5, Right Lower Extremity: 4 Assessment and Plan - Assessment and Plan (Free Text) Assessment: history of MS TIA CVA was ruled out by a brain MRI Plan: Neurology follow up get 2D echo result continue 81 mg of aspirin PT vazquez training
--- NOTE | 2017-03-15 07:44 | CARD ---
APPROVED REPORT EXAM: Two-dimensional and M-mode echocardiogram with Doppler and color Doppler. Other Information Quality : GoodRhythm : NSR INDICATION CVA/TIA 2D DIMENSIONS IVSd1.30 (0.7-1.1cm)LVDd3.93 (3.9-5.9cm) LVOT Diameter2.24 (1.8-2.4cm)PWd0.84 (0.7-1.1cm) IVSs1.27 (0.8-1.2cm)LVDs2.82 (2.5-4.0cm) FS (%) 28.3 %PWs1.05 (0.8-1.2cm) M-Mode DIMENSIONS Left Atrium (MM)2.77 (2.5-4.0cm)IVSd0.84 (0.7-1.1cm) Aortic Root3.44 (2.2-3.7cm)LVDd4.28 (4.0-5.6cm) Aortic Cusp Exc.1.82 (1.5-2.0cm)PWd0.86 (0.7-1.1cm) IVSs1.29 cmFS (%) 36 % LVDs2.72 (2.0-3.8cm)PWs1.10 cm Pulmonary Valve PV Peak Venzcgjl99.9cm/s Tricuspid Valve TR Peak [id number] [id number] Peak Gr.19mmHg [id number] LEFT VENTRICLE The left ventricle is normal size. There is normal left ventricular wall thickness. Left ventricle systolic function is normal. The Ejection Fraction is 60-65%. There is normal LV segmental wall motion. Transmitral Doppler flow pattern is Grade I-abnormal relaxation pattern. RIGHT VENTRICLE The right ventricle is normal size. There is normal right ventricular wall thickness. The right ventricular systolic function is normal. ATRIA The left atrium size is normal. The right atrium size is normal. AORTIC VALVE The aortic valve is mildly sclerotic. There is mild aortic regurgitation. There is no aortic valvular stenosis. MITRAL VALVE The mitral valve is normal in structure and function. There is no evidence of mitral valve prolapse. There is no mitral valve stenosis. There is no mitral valve regurgitation noted. TRICUSPID VALVE The tricuspid valve is normal in structure. There is mild tricuspid regurgitation. Right ventricular systolic pressure is estimated at 30 mmHg. There is no pulmonary hypertension. PULMONIC VALVE The pulmonary valve is normal in structure and function. There is no pulmonic valvular regurgitation. GREAT VESSELS The aortic root is normal in size. The IVC is normal in size and collapses >50% with inspiration. PERICARDIAL EFFUSION The pericardium appears normal. <Conclusion> The left ventricle is normal size. There is normal left ventricular wall thickness. There is normal LV segmental wall motion. Left ventricle systolic function is normal. The Ejection Fraction is 60-65%. Transmitral Doppler flow pattern is Grade I-abnormal relaxation pattern.
[2017-03-15 10:17] LABS: HEMATOCRIT 43.7 % (35.0-51.0); MEAN CELL VOLUME 85.3 fl (80.0-94.0); MEAN CORPUSCULAR HEMOGLOBIN 28.9 pg (27.0-31.0); MEAN CORPUSCULAR HGB CONC 33.9 g/dL (33.0-37.0); RED CELL DISTRIBUTION WIDTH 12.6 % (11.5-14.5); WHITE BLOOD COUNT 8.4 K/uL (4.8-10.8)
--- NOTE | 2017-03-15 10:29 | CP.PCM.PN ---
Subjective - Date & Time of Evaluation Date of Evaluation: 03/15/17 Time of Evaluation: 10:25 - Subjective Subjective: Mr. Castellanos was seen and examined at the bedside. He is alert, responsive and able to verbalize answers to any questions. He denies any headache, dizziness, lightheadedness, numbness. He still has scleral hematoma and hematuria. The scleral hematoma remains stable in size and hematuria is not getting worse. Patient H/H remains stable. There was no untoward events overnight. Objective - Vital Signs/Intake and Output Vital Signs (last 24 hours): Temp Pulse Resp BP Pulse Ox 98.6 F 71 20 115/74 94 L 03/15/17 08:07 03/15/17 09:00 03/15/17 08:07 03/15/17 08:07 03/15/17 08:07 Intake and Output: 03/15/17 03/15/17 06:59 18:59 Intake Total 420 Output Total 300 Balance 120 - Medications Medications: Current Medications Aspirin (Ecotrin) 81 mg PO DAILY [facility] Last Admin: 03/15/17 08:38 Dose: 81 mg Atorvastatin Calcium (Lipitor) 20 mg PO DAILY [facility] Last Admin: 03/15/17 08:38 Dose: 20 mg Clopidogrel Bisulfate (Plavix) 75 mg PO DAILY [facility] Last Admin: 03/14/17 09:01 Dose: 75 mg Ibuprofen (Motrin Tab) 800 mg PO Q8 PRN PRN Reason: PAIN - Labs Labs: 03/15/17 09:50 03/14/17 14:30 PT 13.2 Seconds (9.8-13.1) H 03/11/17 11:18 INR 1.2 (0.9-1.2) 03/11/17 11:18 APTT 34.7 Seconds (25.6-37.1) 03/11/17 11:18 - Constitutional Appears: No Acute Distress - Head Exam Head Exam: ATRAUMATIC, NORMAL INSPECTION, NORMOCEPHALIC - Eye Exam Additional comments: right eye scleral hematoma. - Neurological Exam Neurological Exam: Alert, Awake Neuro motor strength exam: Left Upper Extremity: 5, Right Upper Extremity: 4, Left Lower Extremity: 4, Right Lower Extremity: 4 Additional comments: He respond appropriately and follows commands. Sensation remains intact. Assessment and Plan (1) TIA (transient ischemic attack) Assessment & Plan: Case discussed with Dr. Rendon, with patient right eye scleral hematoma and hematuria, is the reason why patient is on Aspirin 81 mg PO daily. If patient is stable today, he is clear to be discharge to a fdc tomorrow. Status: Acute
[2017-03-16 00:18] VITALS: RESP 18
[2017-03-16 07:15] LABS: HEMATOCRIT 43.4 % (35.0-51.0); MEAN CELL VOLUME 86.7 fl (80.0-94.0); MEAN CORPUSCULAR HEMOGLOBIN 28.8 pg (27.0-31.0); MEAN CORPUSCULAR HGB CONC 33.2 g/dL (33.0-37.0); RED CELL DISTRIBUTION WIDTH 12.6 % (11.5-14.5)
[2017-03-16 12:31] VITALS: BP 124/69; PULSE 88; TEMP 98; O2SAT 97
--- NOTE | 2017-03-16 15:38 | CP.PCM.PN ---
Subjective - Date & Time of Evaluation Date of Evaluation: 03/16/17 Time of Evaluation: 15:20 - Subjective Subjective: vazquez was removed yesterday passed sha colored urine residual right side weakness Objective - Vital Signs/Intake and Output Vital Signs (last 24 hours): Temp Pulse Resp BP Pulse Ox 98 F 88 18 124/69 97 03/16/17 12:31 03/16/17 12:31 03/16/17 12:31 03/16/17 12:31 03/16/17 12:31 Intake and Output: 03/16/17 03/16/17 06:59 18:59 Intake Total 400 Output Total 250 Balance 150 - Medications Medications: Current Medications Aspirin (Ecotrin) 81 mg PO DAILY [facility] Last Admin: 03/16/17 09:02 Dose: 81 mg Atorvastatin Calcium (Lipitor) 20 mg PO DAILY [facility] Last Admin: 03/16/17 09:02 Dose: 20 mg Clopidogrel Bisulfate (Plavix) 75 mg PO DAILY [facility] Last Admin: 03/14/17 09:01 Dose: 75 mg Ibuprofen (Motrin Tab) 800 mg PO Q8 PRN PRN Reason: PAIN - Labs Labs: 03/16/17 06:00 03/14/17 14:30 PT 13.2 Seconds (9.8-13.1) H 03/11/17 11:18 INR 1.2 (0.9-1.2) 03/11/17 11:18 APTT 34.7 Seconds (25.6-37.1) 03/11/17 11:18 - Constitutional Appears: No Acute Distress - Eye Exam Eye Exam: Conjunctival injection (right temporal side) - Respiratory Exam Respiratory Exam: Clear to Ausculation Bilateral. absent: Wheezes - Cardiovascular Exam Cardiovascular Exam: REGULAR RHYTHM. absent: Murmur - GI/Abdominal Exam GI & Abdominal Exam: Soft, Normal Bowel Sounds. absent: Tenderness Assessment and Plan - Assessment and Plan (Free Text) Assessment: TIA history of MS, CVA with residual right side weakness resolved hematuria still remaining right eye scleral hematoma Plan: Neurology cleared for discharge to subacute rehab today continue PT
== END 2017-03-16 15:25 | DRG 69 ==
LOC: H.ER 10:19 → H.ERHOLD 13:00 → H.ICU/CCU 15:23 → H.TEL 03-12 18:38
PROVIDERS: ADMIT Internal Medicine; ATTEND Internal Medicine
PROC: 3E0234Z Introduction of Serum, Toxoid and Vaccine into Muscle, Percutaneous Approach (ICD-10-PCS; principal; 2017-03-11)
DX: G45.9 Transient cerebral ischemic attack, unspecified (principal); G81.91 Hemiplegia, unspecified affecting right dominant side; G35 Multiple sclerosis; R47.1 Dysarthria and anarthria; H49.9 Unspecified paralytic strabismus; Z99.3 Dependence on wheelchair; Z23 Encounter for immunization; E78.5 Hyperlipidemia, unspecified; G89.29 Other chronic pain; G47.419 Narcolepsy without cataplexy; H57.8 Other specified disorders of eye and adnexa; R31.9 Hematuria, unspecified

== ENCOUNTER 2017-11-11 16:25 | Emergency (ER) | payer MEDICARE, OTHER ==
[2017-11-11 16:25] VITALS: BMI 22.0
[2017-11-11 16:34] VITALS: RESP 16; O2SAT 98
--- NOTE | 2017-11-11 18:34 | ED PDOC ---
HPI: General Adult Time Seen by Provider: 11/11/17 16:44 Chief Complaint (Nursing): Pain, Chronic Chief Complaint (Provider): Body aches History Per: Patient History/Exam Limitations: no limitations Onset/Duration Of Symptoms: Days (x1) Current Symptoms Are (Timing): Gone Now Additional Complaint(s): Stevan Castellanos is a 67 year old male, with a past medical history of multiple sclerosis and CVA, who was brought to the emergency department by EMS for body pains onset today. Patient states he had some body pains earlier today but has since resolved. He denies any current pain, fever, chills or other medical complaints. Patient is refusing medical evaluation stating he just wants to go home. PMD: Sarah Hsu Past Medical History Reviewed: Historical Data, Nursing Documentation, Vital Signs Vital Signs: Last Vital Signs Temp 98 F 11/11/17 20:04 Pulse 86 11/11/17 20:04 Resp 16 11/11/17 20:04 BP 143/68 11/11/17 20:04 Pulse Ox 98 11/11/17 20:04 - Medical History PMH: CVA, Multiple Sclerosis - Family History Family History: States: Unknown Family Hx - Living Arrangements Living Arrangements: With Family (brother) - Social History Current smoker - smoking cessation education provided: No Alcohol: None Drugs: Denies - Home Medications Home Medications: Ambulatory Orders Medication Instructions Recorded Armodafinil 150 mg Tab [Nuvigil 150 mg PO QAM 03/11/17 150 mg Tab] Diclofenac Sodium [Voltaren] 1 appl TOP TID PRN 03/11/17 Ergocalciferol (Vitamin D2) 50,000 unit PO QWK 03/11/17 [Vitamin D2] Ibuprofen [Motrin Tab] 600 mg PO Q8H PRN 03/11/17 Mv,Min10/Folic Acid/D3/Ala/Lut 1 tab PO DAILY 03/11/17 [Strovite One Caplet] Aspirin [Ecotrin] 81 mg PO DAILY tabec 03/15/17 Atorvastatin [Lipitor] 20 mg PO DAILY tab 03/15/17 - Allergies Allergies/Adverse Reactions: Allergies Allergy/AdvReac Type Severity Reaction Status Date / Time No Known Allergies Allergy Verified 03/11/17 10:26 Review of Systems ROS Statement: Except As Marked, All Systems Reviewed And Found Negative Constitutional: Positive for: Other (body aches resolved). Negative for: Fever , Chills Physical Exam - Reviewed Nursing Documentation Reviewed: Yes Vital Signs Reviewed: Yes - ECG O2 Sat by Pulse Oximetry: 98 (RA) Pulse Ox Interpretation: Normal Medical Decision Making Medical Decision Making: Time: 16:44 Initial Impression: Chronic pain resolved Initial Plan: -Patient is AOEX3, refusing medical evaluation stating he just wants to go home. 17:10 Leaving Against Medical Advice (AMA): This patient is choosing to leave against medical advice. The EP has personally explained to the pt that choosing to do so may result in permanent bodily harm or . The EP discussed at great length that without further evaluation and monitoring there may be unforeseen circumstances and/or deterioration causing permanent bodily harm or as a result of their choice. The pt verbalized these risks back to the physician in laymans terms. The pt is alert , oriented, and shows the mental capacity to make clear decisions regarding the pts health care at this time. The pt continues to wish to leave against medical advice. In light of the pts decision to leave AMA, follow-up has been arranged and the pt is aware of the importance of following up as instructed. The pt has been advised that they should return to the ED immediately if they change their mind at any time, or if thier condition begins to change or worsen in any way. ----- Scribe Attestation: Documented by Bobby Stock, acting as a scribe for Alondra España MD. Provider Scribe Attestation: All medical record entries made by the Scribe were at my direction and personally dictated by me. I have reviewed the chart and agree that the record accurately reflects my personal performance of the history, physical exam, medical decision making, and the department course for this patient. I have also personally directed, reviewed, and agree with the discharge instructions and disposition. Disposition - Clinical Impression Clinical Impression: Myalgia - Disposition Disposition: Against Medical Advice Disposition Time: 17:30 Condition: UNKNOWN Forms: [employer] (Portuguese)
[2017-11-11 20:05] VITALS: BP 143/68; PULSE 86; TEMP 98
== END 2017-11-11 21:39 | disposition left against medical advice (07) ==
LOC: H.ER 16:25
DX: G89.4 Chronic pain syndrome (principal); G35 Multiple sclerosis; Z79.82 Long term (current) use of aspirin; Z86.73 Personal history of transient ischemic attack (TIA), and cerebral infarction without residual deficits

== ENCOUNTER 2018-02-06 13:13 | Inpatient (IN) | payer MEDICARE, OTHER ==
--- NOTE | 2018-02-06 13:23 | ED PDOC ---
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 EMS reports last night he fell and was brought back to bed. This morning, a friend came to check on him and found him on the floor prompting call to EMS. He is wheelchair bound. EMS reports that he was awake and alert when he was found with slurred speech. PMD: Dr Moy NIHSS Stroke Scale - Date/Time Evaluation Performed Date Performed: 02/06/18 Time Performed: 13:20 When Was NIHSS Performed: Baseline - How Severe is the Stroke Level of Consciousness: 0=Alert LOC to Questions: 0=Both comments correct LOC to commands: 0=Obeys both correctly Best Gaze: 0=Normal Visual: 0=No visual loss Facial: 0=Normal Motor Arm - Left: 0=No drift Motor Arm - Right: 0=No drift Motor Leg - Left: 0=No drift Motor Leg - Right: 1=Drift before 5 sec Limb Ataxia: 0=Absent Sensory: 0=Normal Best Language: 1=Mild to moderate aphasia Dysarthia: 0=Normal articulation Extinction & Inattention (Neglect): 0=Normal, no object Score: 2 Past Medical History Reviewed: Historical Data, Nursing Documentation, Vital Signs Vital Signs: Last Vital Signs Temp 98.3 F 02/10/18 16:00 Pulse 73 02/10/18 16:12 Resp 18 02/10/18 16:00 BP 114/68 02/10/18 16:00 Pulse Ox 100 02/10/18 16:00 - Medical History PMH: CVA, Multiple Sclerosis - Surgical History Surgical History: No Surg Hx - Family History Family History: States: Unknown Family Hx - Home Medications Home Medications: Ambulatory Orders Medication Instructions Recorded Armodafinil 150 mg Tab [Nuvigil 150 mg PO QAM 03/11/17 150 mg Tab] Diclofenac Sodium [Voltaren] 1 appl TOP TID PRN 03/11/17 Ergocalciferol (Vitamin D2) 50,000 unit PO QWK 03/11/17 [Vitamin D2] Ibuprofen [Motrin Tab] 600 mg PO Q8H PRN 03/11/17 Mv,Min10/Folic Acid/D3/Ala/Lut 1 tab PO DAILY 03/11/17 [Strovite One Caplet] Aspirin [Ecotrin] 81 mg PO DAILY tabec 03/15/17 Atorvastatin [Lipitor] 20 mg PO DAILY tab 03/15/17 - Allergies Allergies/Adverse Reactions: Allergies Allergy/AdvReac Type Severity Reaction Status Date / Time No Known Allergies Allergy Verified 02/06/18 13:14 Review of Systems ROS Statement: Except As Marked, All Systems Reviewed And Found Negative Constitutional: Positive for: Weakness Neurological: Positive for: Other (slurred speech) Physical Exam - Reviewed Nursing Documentation Reviewed: Yes Vital Signs Reviewed: Yes - Physical Exam Appears: Positive for: No Acute Distress Head Exam: Positive for: ATRAUMATIC, NORMAL INSPECTION, NORMOCEPHALIC Skin: Positive for: Normal Color, Warm, Dry Eye Exam: Positive for: EOMI, Normal appearance, PERRL Neck: Positive for: Normal, Painless ROM, Supple Cardiovascular/Chest: Positive for: Regular Rate, Rhythm. Negative for: Murmur Respiratory: Negative for: Respiratory Distress Gastrointestinal/Abdominal: Positive for: Normal Exam, Soft. Negative for: Tenderness Extremity: Positive for: Other (decreased strength in right leg). Negative for : Normal ROM Neurologic/Psych: Positive for: Alert, Oriented (x 3). Negative for: Motor/ Sensory Deficits - Laboratory Results Result Diagrams: 02/10/18 04:35 02/10/18 04:35 - ECG ECG: Positive for: Interpreted By Me, Viewed By Me ECG Rhythm: Positive for: Sinus Rhythm (normal) Rate: 73 (with left ventricular hypertrophy) Pulse Ox Interpretation: Normal Medical Decision Making Medical Decision Makin:23 --Blood type --CT Head (Code Stroke) --EKG --Labs --Stroke team consult --NS IV 13:37 --Radiologist Dr Olmedo notified that there are no acute findings. Accucheck was 122. Dr. Moreno was called. Left a message for him to call back. 13:50 Dr. Moreno recommends CTA head and neck, Aspirin and admit to telemetry. Dr. Angel, hospitalist, has accepted patient for admission. 15:03 --EJ placed on left thigh due to no IV access. Scribe Attestation: Documented by Estefania Gould, acting as a scribe for Ankit Cervantes MD Provider Scribe Attestation: All medical record entries made by the Scribe were at my direction and personally dictated by me. I have reviewed the chart and agree that the record accurately reflects my personal performance of the history, physical exam, medical decision making, and the department course for this patient. I have also personally directed, reviewed, and agree with the discharge instructions and disposition. Disposition - Clinical Impression Clinical Impression: Episode of generalized weakness - Patient ED Disposition Is Patient to be Admitted: Yes Discussed With : Sathish Angel Doctor Will See Patient In The: Hospital - Disposition Disposition Time: 14:07 - Pt Status Changed To: Hospital Disposition Of: Observation
--- NOTE | 2018-02-06 13:43 | CT ---
Date of service: 02/06/2018 PROCEDURE: CT HEAD WITHOUT CONTRAST. HISTORY: code stroke COMPARISON: MRI brain without contrast from 03/12/2017. TECHNIQUE: Axial computed tomography images were obtained through the head/brain without intravenous contrast. Radiation dose: Total exam DLP = 1062.20 mGy-cm. This CT exam was performed using one or more of the following dose reduction techniques: Automated exposure control, adjustment of the mA and/or kV according to patient size, and/or use of iterative reconstruction technique. FINDINGS: HEMORRHAGE: No intracranial hemorrhage. BRAIN: There are moderate chronic microangiopathic changes. There is no mass, mass effect or abnormal extra-axial fluid collection. There is no territorial infarction. The midline sagittal structures are normal. VENTRICLES: There is moderate age-related global parenchymal volume loss and proportionate enlargement of the ventricles and cortical sulci. CALVARIUM: The skull base and calvarium are normal. PARANASAL SINUSES: Predominantly clear. MASTOID AIR CELLS: Predominantly clear. OTHER FINDINGS: None. IMPRESSION: No acute intracranial abnormality. If there is a persistent focal neurologic deficit and an ongoing clinical concern for acute infarction, an MRI of the brain without intravenous contrast would be a more sensitive modality for evaluation of hyperacute/acute ischemic infarction. Moderate chronic microangiopathic changes and moderate age-related global parenchymal volume loss. Important findings were discussed with Dr. Ankit Cervantes in the ER on 02/06/2018 at 1:35 p.m..
[2018-02-06 13:55] LABS: BASO % 0.3 % (0.0-2.0); HEMOGLOBIN 14.3 g/dL (12.0-18.0); LYMPH # 0.8 K/uL (1.0-4.3); LYMPH % 6.6 % (20.0-40.0); MEAN CELL VOLUME 86.4 fl (80.0-94.0); MEAN CORPUSCULAR HEMOGLOBIN 28.5 pg (27.0-31.0); MEAN PLATELET VOLUME 8.9 fl (7.2-11.7); MONO # 0.9 K/uL (0.0-0.8); MONO % 7.7 % (0.0-10.0); NEUT # 10.1 K/uL (1.8-7.0); NEUT % 85.4 % (50.0-75.0); PLATELET COUNT 198 K/uL (130-400); RBC 5.03 Mil/uL (4.40-5.90); RED CELL DISTRIBUTION WIDTH 12.9 % (11.5-14.5); WHITE BLOOD COUNT 11.8 K/uL (4.8-10.8)
[2018-02-06] MEDS: Sodium Chloride 0.9% 1,000 ML IV SCH (14:00)
[2018-02-06 14:05] LABS: ALB/GLOB RATIO 1.1 (1.0-2.1); ALT/SGPT 79 U/L (21-72); AST/SGOT 150 U/L (17-59); BLOOD UREA NITROGEN 14 mg/dl (9-20); CALCIUM 8.8 mg/dL (8.4-10.2); GFR NON-AFRICAN AMERICAN > 60; HDL CHOLESTEROL 32 MG/DL (30-70)
[2018-02-06 14:16] LABS: LDL CHOLESTEROL 58 mg/dL (0-129)
[2018-02-06] MEDS ORDERED: Iodixanol 320 MG/ML 100 ML BOTTLE IV ONE (14:26)
--- NOTE | 2018-02-06 14:26 | RAD ---
Date of service: 02/06/2018 HISTORY: Code Stroke COMPARISON: 03/11/2017. FINDINGS: LUNGS: Mild fibrotic changes in the right upper lobe. No focal consolidation. PLEURA: No significant pleural effusion identified, no pneumothorax apparent. CARDIOVASCULAR: Normal. OSSEOUS STRUCTURES: No significant abnormalities. VISUALIZED UPPER ABDOMEN: Normal. OTHER FINDINGS: None. IMPRESSION: No active pulmonary disease.
[2018-02-06] MEDS ORDERED: Sodium Chloride 0.9% 50 ML IV ONE (14:27)
[2018-02-06 14:29] LABS: LYMPHOCYTE 8 % (20-50); MONOCYTE 6 % (0-10); NEUTROPHIL 86 % (42-75); PLATELET ESTIMATE NORMAL (NORMAL); TOTAL CELLS COUNTED 100
[2018-02-06 15:50] LABS: INR 1.2; PROTHROMBIN TIME 13.4 Seconds (9.8-13.1)
[2018-02-06 15:52] LABS: PARTIAL THROMBOPLASTIN TIME 30.5 Seconds (25.6-37.1)
--- NOTE | 2018-02-06 16:16 | CT ---
PROCEDURE: CTA HEAD AND NECK WITH CONTRAST HISTORY: slurred speech COMPARISON: None available. TECHNIQUE: Initial noncontrast head CT was performed. Subsequently, CT angiogram of the head and neck were performed after the intravenous administration of 80 mL of Omnipaque 350. Contiguous 1.5mm thick images were obtained in the axial plane of the neck. 2-D coronal and sagittal MPR images were obtained. Imaging postprocessing was performed with 3-D images also obtained. A delayed contrast head CT was also obtained. This CT exam was performed using one or more of the following dose reduction techniques: Automated exposure control, adjustment of the mA and/or kV according to patient size, and/or use of iterative reconstruction technique. Contrast dose: 99 cc Visipaque 320 Radiation dose: Total exam DLP = 474.38 mGy-cm. FINDINGS: Please note this examination is of suboptimal diagnostic quality due to missed bolus. HEAD: Right: The intracranial internal carotid artery, and anterior and middle cerebral arteries are widely patent. Left: There is asymmetric narrowing of the left M1 segment. The intracranial internal carotid artery and anterior cerebral arteries are widely patent. The left A1 segment is hypoplastic, an anatomic variant. Posterior circulation: The visualized intracranial vertebral arteries, basilar artery and posterior cerebral arteries are widely patent. The right vertebral artery is hypoplastic, an anatomic variant. There is no endoluminal filling defect to suggest thrombus. There is no intracranial saccular aneurysm. There is no abnormal enhancement on the postcontrast CT. NECK: Evaluation of the neck vessels is not possible due to suboptimal bolus. There are also extensive streak artifacts from contrast pool in the base of the left neck which is likely related to extravasation. IMPRESSION: 1. Suboptimal diagnostic examination due to missed bolus. Allowing for this, asymmetric narrowing of the left M1 segment likely related to intracranial atherosclerosis. . 2. Extensive streak artifacts in the base of the left neck from contrast for which could be related to local extravasation. These findings were discussed with Dr Ankit Cervantes on 02/06/2018 at 4:14 p.m.
[2018-02-06 17:02] LABS: URINE BACTERIA RARE (<OCC); URINE BILIRUBIN NEGATIVE (NEGATIVE); URINE BLOOD LARGE (NEGATIVE); URINE CLARITY CLOUDY (Clear); URINE COLOR YELLOW (YELLOW); URINE GLUCOSE (UA) NEG (Normal); URINE LEUKOCYTE ESTERASE NEG Leu/uL (Negative); URINE PROTEIN 100 mg/dL (NEGATIVE); URINE UROBILINOGEN 0.2-1.0 mg/dL (0.2-1.0)
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
--- NOTE | 2018-02-06 20:54 | CARD ---
APPROVED REPORT Date of service: 02/06/2018 <Conclusion> Normal sinus rhythm Voltage criteria for left ventricular hypertrophy Abnormal ECG
--- NOTE | 2018-02-06 21:25 | CP.PCM.CON ---
History of Present Illness - History of Present Illness History of Present Illness: 67 y/o male with PMHx of CVA and Multiple sclerosis, who presens today to the ED brought by EMS with slurred speech and history of falls at home x2 yesterday and today. The HPI is obtained part from the patient who is a poor historian and part mainly from the MR. The patient was found in the floor by a friend that called EMS, EMS found him alert with slurred speech, the patient is wheelchair bound and he states he has a friend that visits him and bring him food, he states he lives with his brother who takes care of him, but his brother is visiting [place] now. Reviewing the MR he was admitted in with AMS, weakness and dysarthria at that time and was evaluated by Neuro, he was discharged to [facility] at that time for PT with dx of CVA with residual right sided weakness. Patient is not clear about the falls and he appears to not remember well the falls. Patient states now that he has slurred speech for long time, denies MELENDEZ, CP, abdominal pain, N/V/D/C, fever, chills, urinary problems. ROS: all systems reviewed and found negative, except as per HPI. PMD: Patient does not remember PMH: CVA, MS FMH: Father COPD Allergies: Denies MEDS: Armodafinil 150 PO QD, Voltaren top PRN, Motrin PRN, MVT PO QD, Aspirin 81 PO QD, Atrovastatin 20 PO QD, Plavix 75 PO QD(unclear if patient whether patient was taking plavix) Surgeries: Unable to obtain. Past Patient History - Past Social History Smoking Status: Never Smoked - CARDIAC Hx Cardiac Disorders: Yes - NEUROLOGICAL Hx Multiple Sclerosis: Yes - MUSCULOSKELETAL/RHEUMATOLOGICAL Hx Falls: No - PSYCHIATRIC Hx Substance Use: No - SURGICAL HISTORY Hx Surgeries: No - ANESTHESIA Hx Anesthesia: No Meds Allergies/Adverse Reactions: Allergies Allergy/AdvReac Type Severity Reaction Status Date / Time No Known Allergies Allergy Verified 02/06/18 13:14 - Medications Medications: Current Medications Aspirin (Aspirin) 325 mg PO DAILY [facility] Atorvastatin Calcium (Lipitor) 40 mg PO HS [facility] Clopidogrel Bisulfate (Plavix) 75 mg PO DAILY [facility] Enoxaparin Sodium (Lovenox) 40 mg SC DAILY [facility] PRN Reason: Protocol Sodium Chloride (Sodium Chloride 0.9%) 1,000 mls @ 100 mls/hr IV .Q10H [facility] Last Admin: 02/06/18 14:00 Dose: 100 mls/hr Dextrose/Sodium Chloride (Dextrose 5%/0.45% Ns 1000 Ml) 1,000 mls @ 100 mls/hr IV .Q10H [facility] Stop: 02/07/18 17:58 Results - Vital Signs Recent Vital Signs: Last Vital Signs Temp 97.8 F 02/06/18 19:32 Pulse 77 02/06/18 19:32 Resp 20 02/06/18 19:32 BP 140/77 02/06/18 19:32 Pulse Ox 96 02/06/18 19:32 - Labs Result Diagrams: 02/06/18 13:51 02/06/18 13:51 Labs: Laboratory Results - last 24 hr 02/06/18 02/06/18 02/06/18 13:21 13:51 13:51 WBC 11.8 H RBC 5.03 Hgb 14.3 Hct 43.4 MCV 86.4 MCH 28.5 MCHC 33.0 RDW 12.9 Plt Count 198 MPV 8.9 Neut % (Auto) 85.4 H Lymph % (Auto) 6.6 L [place] % (Auto) 7.7 Eos % (Auto) 0.0 Baso % (Auto) 0.3 Neut # (Auto) 10.1 H Lymph # (Auto) 0.8 L [place] # (Auto) 0.9 H Eos # (Auto) 0.0 Baso # (Auto) 0.0 Neutrophils % (Manual) 86 H Lymphocytes % (Manual) 8 L Monocytes % (Manual) 6 Platelet Estimate Normal RBC Morphology Normal PT INR APTT Sodium 142 Potassium 3.9 Chloride 106 Carbon Dioxide 21 L Anion Gap 19 BUN 14 Creatinine 0.6 L Est GFR ( Amer) > 60 Est GFR (Non-Af Amer) > 60 POC Glucose (mg/dL) 122 H Random Glucose 113 H Calcium 8.8 Total Bilirubin 0.4 AST 150 H D ALT 79 H D Alkaline Phosphatase 68 Troponin I < 0.0120 Total Protein 7.6 Albumin 4.0 Globulin 3.6 Albumin/Globulin Ratio 1.1 Triglycerides 71 D Cholesterol 115 LDL Cholesterol Direct 58 HDL Cholesterol 32 Urine Color Urine Clarity Urine pH Ur Specific [place] Urine Protein Urine Glucose (UA) Urine Ketones Urine Blood Urine Nitrate Urine Bilirubin Urine Urobilinogen Ur Leukocyte Esterase Urine RBC (Auto) Urine Microscopic WBC Urine Bacteria Blood Type Blood Type Confirm Antibody Screen BBK History Checked 02/06/18 02/06/18 02/06/18 14:32 15:11 15:25 WBC RBC Hgb Hct MCV MCH MCHC RDW Plt Count MPV Neut % (Auto) Lymph % (Auto) [place] % (Auto) Eos % (Auto) Baso % (Auto) Neut # (Auto) Lymph # (Auto) [place] # (Auto) Eos # (Auto) Baso # (Auto) Neutrophils % (Manual) Lymphocytes % (Manual) Monocytes % (Manual) Platelet Estimate RBC Morphology PT 13.4 H INR 1.2 APTT 30.5 Sodium Potassium Chloride Carbon Dioxide Anion Gap BUN Creatinine Est GFR ( Amer) Est GFR (Non-Af Amer) POC Glucose (mg/dL) Random Glucose Calcium Total Bilirubin AST ALT Alkaline Phosphatase Troponin I Total Protein Albumin Globulin Albumin/Globulin Ratio Triglycerides Cholesterol LDL Cholesterol Direct HDL Cholesterol Urine Color Urine Clarity Urine pH Ur Specific [place] Urine Protein Urine Glucose (UA) Urine Ketones Urine Blood Urine Nitrate Urine Bilirubin Urine Urobilinogen Ur Leukocyte Esterase Urine RBC (Auto) Urine Microscopic WBC Urine Bacteria Blood Type O POSITIVE Blood Type Confirm O POSITIVE Antibody Screen Negative BBK History Checked No verified bt 02/06/18 16:33 WBC RBC Hgb Hct MCV MCH MCHC RDW Plt Count MPV Neut % (Auto) Lymph % (Auto) [place] % (Auto) Eos % (Auto) Baso % (Auto) Neut # (Auto) Lymph # (Auto) [place] # (Auto) Eos # (Auto) Baso # (Auto) Neutrophils % (Manual) Lymphocytes % (Manual) Monocytes % (Manual) Platelet Estimate RBC Morphology PT INR APTT Sodium Potassium Chloride Carbon Dioxide Anion Gap BUN Creatinine Est GFR ( Amer) Est GFR (Non-Af Amer) POC Glucose (mg/dL) Random Glucose Calcium Total Bilirubin AST ALT Alkaline Phosphatase Troponin I Total Protein Albumin Globulin Albumin/Globulin Ratio Triglycerides Cholesterol LDL Cholesterol Direct HDL Cholesterol Urine Color Yellow Urine Clarity Cloudy Urine pH 5.0 Ur Specific [place] 1.025 Urine Protein 100 Urine Glucose (UA) Neg Urine Ketones Negative Urine Blood Large Urine Nitrate Negative Urine Bilirubin Negative Urine Urobilinogen 0.2-1.0 Ur Leukocyte Esterase Neg Urine RBC (Auto) 16 H Urine Microscopic WBC 2 Urine Bacteria Rare Blood Type Blood Type Confirm Antibody Screen BBK History Checked Assessment & Plan - Assessment and Plan (Free Text) Assessment: 67 yr old male with possible stroke, or excerbation of MS, who will need MRI brain with taras.
[2018-02-06] MEDS: Dextrose 5%/0.45% NS 1,000 ML IV SCH (21:43)
[2018-02-07 05:16] LABS: BASO # 0.1 K/uL (0.0-0.2); BASO % 0.7 % (0.0-2.0); EOS # 0.1 K/uL (0.0-0.7); EOS % 0.8 % (0.0-4.0); HEMOGLOBIN 13.6 g/dL (12.0-18.0); LYMPH # 1.3 K/uL (1.0-4.3); LYMPH % 13.5 % (20.0-40.0); MEAN CELL VOLUME 86.2 fl (80.0-94.0); MEAN CORPUSCULAR HEMOGLOBIN 29.3 pg (27.0-31.0); MEAN PLATELET VOLUME 9.5 fl (7.2-11.7); MONO # 1.2 K/uL (0.0-0.8); MONO % 12.6 % (0.0-10.0); NEUT # 6.8 K/uL (1.8-7.0); NEUT % 72.4 % (50.0-75.0); RBC 4.65 Mil/uL (4.40-5.90); RED CELL DISTRIBUTION WIDTH 13.1 % (11.5-14.5); WHITE BLOOD COUNT 9.4 K/uL (4.8-10.8)
[2018-02-07 05:40] LABS: BLOOD UREA NITROGEN 11 mg/dl (9-20); CALCIUM 8.3 mg/dL (8.4-10.2); GFR NON-AFRICAN AMERICAN > 60
[2018-02-07] MEDS: Enoxaparin 40 mg Syringe SC SCH (08:36)
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
--- NOTE | 2018-02-07 17:11 | CARD ---
APPROVED REPORT Date of service: 02/07/2018 EXAM: Two-dimensional and M-mode echocardiogram with Doppler and color Doppler. Other Information Quality : FairRhythm : NSR Technically limited study due to Poor Echo Window INDICATION CVA/TIA 2D DIMENSIONS IVSd1.26 (0.7-1.1cm)LVDd4.15 (3.9-5.9cm) LVOT Diameter1.72 (1.8-2.4cm)PWd1.04 (0.7-1.1cm) IVSs1.44 (0.8-1.2cm)LVDs2.07 (2.5-4.0cm) FS (%) 50.0 %PWs1.19 (0.8-1.2cm) M-Mode DIMENSIONS Left Atrium (MM)3.04 (2.5-4.0cm)Aortic Root3.60 (2.2-3.7cm) Aortic Cusp Exc.2.01 (1.5-2.0cm) Aortic Valve AoV Peak Rfmswxfm345.3cm/sAoV VTI20.9cmAO Peak GR.6mmHg LVOT Peak Hbfqpjqc72.9cm/sLVOT VTI21.62cmAO Mean GR.3mmHg AI P 1/2 [id number] Mitral Valve MV E Dbxgjbsu66.8cm/sMV DECEL [id number] A Rrkpmdpn92.9cm/s MV PRB61oiK/A ratio0.7MVA (PHT)2.51cm2 TDI Lateral E' Peak V4.24cm/sMedial E' Peak V4.24cm/sE/Lateral E'13.4 E/Medial E'13.4 LEFT VENTRICLE The left ventricle is normal size. There is mild asymmetric septal hypertrophy. No evidence of LVOT obstruction The left ventricular systolic function is grossly normal Unable to estimate EF as no parasternal short axis views No regional wall motion abnormalities noted.. The left ventricular diastolic function is normal. No left ventricle thrombus noted on this study. There is no ventricular septal defect visualized. There is no mass noted in the left ventricle. RIGHT VENTRICLE The right ventricle is normal size. There is normal right ventricular wall thickness. The right ventricular systolic function is normal. ATRIA The left atrium size is normal. The right atrium size is normal. The interatrial septum is intact with no evidence for an atrial septal defect. AORTIC VALVE The aortic valve is grossly normal in structure. Mild aortic regurgitation is present. There is no aortic valvular stenosis. MITRAL VALVE The mitral valve is normal in structure. There is no mitral valve stenosis. There is no mitral valve regurgitation noted. TRICUSPID VALVE The tricuspid valve is normal in structure. There is no tricuspid valve regurgitation noted. PULMONIC VALVE The pulmonary valve poorly visualized There is mild pulmonic valvular regurgitation. GREAT VESSELS The aortic root is normal in size. The ascending aorta is normal in size. The pulmonary artery is normal. The IVC is normal in size and collapses >50% with inspiration. PERICARDIAL EFFUSION There is no pericardial effusion. <Conclusion> Technically fair study Mild aortic insufficiency Mild pulmonic insufficiency Mild hypertrophic cardiomyopathy Grossly normal LV funcion If clinically suspect intracardiac/ascending aortic source of embolus, consideration could be given towards a DAVID
--- NOTE | 2018-02-07 18:32 | RAD ---
PROCEDURE: Radiographs of the left humerus. HISTORY: left arm pain COMPARISON: None. FINDINGS: BONES: Normal. No fracture or focal lesion. SOFT TISSUES: Normal. OTHER FINDINGS: None. IMPRESSION: Unremarkable radiographs of left humerus.
--- NOTE | 2018-02-07 18:32 | RAD ---
Date of service: 02/07/2018 PROCEDURE: Radiographs of the Left Shoulder HISTORY: left arm pain COMPARISON: No prior. FINDINGS: BONES: Normal. No fracture. JOINTS: Normal. Glenohumeral and acromioclavicular joints preserved. No osteoarthritis. SOFT TISSUES: Normal. OTHER FINDINGS: None. IMPRESSION: Normal radiographs of the left shoulder.
[2018-02-07] MEDS: Dextrose 5%/0.45% NS 1,000 ML IV SCH (20:00)
[2018-02-08 05:47] LABS: BLOOD UREA NITROGEN 11 mg/dl (9-20); CALCIUM 8.3 mg/dL (8.4-10.2); GFR NON-AFRICAN AMERICAN > 60
[2018-02-08] MEDS ORDERED: Potassium Chloride 20 mEq/15 ml LIQ UD PO ONE (08:42)
[2018-02-08] MEDS: Enoxaparin 40 mg Syringe SC SCH (09:51)
[2018-02-08] MEDS: Sodium Chloride 0.9% 1,000 ML IV SCH (09:59)
--- NOTE | 2018-02-08 12:13 | CP.PCM.PN ---
<Radha Museth - Last Filed: 02/08/18 12:08> Subjective - Date & Time of Evaluation Date of Evaluation: 02/08/18 Time of Evaluation: 09:05 - Subjective Subjective: Patient was seen, and examined in telemetry unit this morning. Patient is still reporting pain in his left shoulder, and arm. Noted swelling, and multiple abrasions in left shoulder/arm, pt is unable to move left UE because pain. No events reported overnight. Pending Head MRI official report. Objective - Vital Signs/Intake and Output Vital Signs (last 24 hours): Temp Pulse Resp BP Pulse Ox 98.5 F 89 20 156/81 H 95 02/08/18 08:22 02/08/18 09:50 02/08/18 08:22 02/08/18 09:50 02/08/18 08:22 - Medications Medications: Current Medications Aspirin (Aspirin Chewable) 81 mg PO DAILY [facility] Atorvastatin Calcium (Lipitor) 40 mg PO HS [facility] Last Admin: 02/07/18 22:03 Dose: 40 mg Clopidogrel Bisulfate (Plavix) 75 mg PO DAILY [facility] Last Admin: 02/08/18 09:51 Dose: 75 mg Enoxaparin Sodium (Lovenox) 40 mg SC DAILY [facility] PRN Reason: Protocol Last Admin: 02/08/18 09:51 Dose: 40 mg Losartan Potassium (Cozaar) 50 mg PO DAILY [facility] Last Admin: 02/08/18 09:50 Dose: 50 mg Tramadol HCl (Ultram) 50 mg PO Q12 PRN PRN Reason: Pain, moderate (4-7) - Labs Labs: 02/07/18 04:20 02/08/18 05:12 PT 13.4 Seconds (9.8-13.1) H 02/06/18 14:32 INR 1.2 02/06/18 14:32 APTT 30.5 Seconds (25.6-37.1) 02/06/18 14:32 - Skin Additional comments: Constitutional Appears: Non-toxic, No Acute Distress - Head Exam Head Exam: ATRAUMATIC, NORMOCEPHALIC - Eye Exam Eye Exam: EOMI - ENT Exam ENT Exam: Mucous Membranes Moist - Neck Exam Neck Exam: Full ROM - Respiratory Exam Respiratory Exam: Clear to Ausculation Bilateral. absent: Wheezes - Cardiovascular Exam Cardiovascular Exam: REGULAR RHYTHM, +S1, +S2 - GI/Abdominal Exam GI & Abdominal Exam: Soft, Normal Bowel Sounds. absent: Tenderness - Extremities Exam Extremities Exam: absent: Pedal Edema - Neurological Exam Neurological Exam: Alert, Awake Additional comments: AAOx2, confused to time, (he said that today is Month 20) Speech: Slurred Speech Cranial nerves: No Nystagmus seen, No Tongue Deviation Neuro motor strength exam: Right Upper Extremity: 2/1, Left Lower Extremity: 4, Right Lower Extremity: 2/1 Assessment and Plan - Assessment and Plan (Free Text) Assessment: 67 y/o male with PMHx of CVA with residual right sided hemiparesis and Multiple sclerosis as per MR, who presented to the ED brought by EMS for evaluation of multiples falls and slurred speech, admitted to r/o CVA. CT head done on admission reported no evidence of acute intracranial abnormality. Patient seen by Neurology, had a head MRI done on 02/06, still pending official report. Patient failed swallow eval on admission, but yesterday as per dietitian Pt's swallowing skills appear WFL for a finely chopped diet with thin liquids. PT evaluation recommended subacute rehab. Plan: Slurred speech -r/o CVA -associated with right sided weakness -suspected residual from prior CVA -Neuro check Q 4 h -After Speech/swallow eval, pt was cleared for chopped food, thin fluids -Discontinued IV fluids -Echocardiogram done on 02/06 rebiwed, no evidence of atrial septal defect. No reported thrombus. -EKG done on admission showed NSR -CT head: reported as no evidence of intracranial abnormalities -CTA Head/Neck, reported as suboptimal study, no acute findings -MRI of Brain, pending results, will f/u -started on Aspirin 81 mg PO ( was on 325 mg on admission) -c/w on Plavix 75 PO QD -c/w Atorvastatin 40 PO QHS -PT eval and treatment -OT eval and treatment -PT recommended [facility] -Neuro consult by Dr Moreno, Recommendation appreciated Multiple recent falls -likely secondary to h/o CVA vs MS -x ray of left shoulder reported as normal, no evidence of Fx -x ray of left humerus reported as normal,no evidence of Fx -CT head: reported as no evidence of intracranial abnormalities -fall precautions protocol Left Shoulder Pain -associated with swelling, and skin abrasions -s/p Fall -x ray of left shoulder reported as normal, no evidence of Fx -will do left UE CT scan w/o contrast, ordered. F/U results -pain control with ULtram -avoid NSAIDs ( on aspirin, and plavix) DVT prophylaxis -Lovenox 40 SC QD Code Status -Full code <Tati Cordon - Last Filed: 02/08/18 14:23> Objective - Vital Signs/Intake and Output Vital Signs (last 24 hours): Temp Pulse Resp BP Pulse Ox 98.4 F 98 H 20 141/73 95 02/08/18 12:11 02/08/18 12:11 02/08/18 12:11 02/08/18 12:11 02/08/18 12:11 - Medications Medications: Current Medications Aspirin (Aspirin Chewable) 81 mg PO DAILY [facility] Atorvastatin Calcium (Lipitor) 40 mg PO HS [facility] Last Admin: 02/07/18 22:03 Dose: 40 mg Clopidogrel Bisulfate (Plavix) 75 mg PO DAILY [facility] Last Admin: 02/08/18 09:51 Dose: 75 mg Enoxaparin Sodium (Lovenox) 40 mg SC DAILY [facility] PRN Reason: Protocol Last Admin: 02/08/18 09:51 Dose: 40 mg Losartan Potassium (Cozaar) 50 mg PO DAILY [facility] Last Admin: 02/08/18 09:50 Dose: 50 mg Tramadol HCl (Ultram) 50 mg PO Q12 PRN PRN Reason: Pain, moderate (4-7) - Labs Labs: 02/07/18 04:20 02/08/18 05:12 PT 13.4 Seconds (9.8-13.1) H 02/06/18 14:32 INR 1.2 02/06/18 14:32 APTT 30.5 Seconds (25.6-37.1) 02/06/18 14:32 Attending/Attestation - Attestation I have personally seen and examined this patient.: Yes I have fully participated in the care of the patient.: Yes I have reviewed all pertinent clinical information, including history, physical exam and plan: Yes Notes (Text): Preliminary MRI reading ( read by Vamshi) : neg acute CVA HTN - start Cozaar 50 mg daily Hypokalemia - replace with PO KCl
--- NOTE | 2018-02-08 15:12 | MRI ---
Date of service: 02/07/2018 PROCEDURE: MRI BRAIN WITHOUT CONTRAST HISTORY: stroke COMPARISON: MRI 03/12/2017, CT angiography 02/06/[address] head 02/06/2018 TECHNIQUE: Multiplanar, multisequence MR images of the brain were obtained without intravenous contrast enhancement. FINDINGS: HEMORRHAGE: None DWI: No evidence of restricted diffusion to suggest recent infarct. T2 weighted shine through is seen on the ADC mapping. BRAIN PARENCHYMA: No mass effect or edema. Stable diffuse cerebral cortical atrophy and small vessel changes in the white matter tracts. VENTRICLES: Ventricles are mildly prominent which may suggest an element of central atrophy but are otherwise unchanged. CRANIUM: No fracture lytic process in the skull. Chronic degenerative changes in the C1-C2 articulation region. ORBITS: Orbits are unremarkable. No retro-orbital process seen. PARANASAL SINUSES/MASTOIDS: Mild mucosal changes in the sinuses. Mastoid air cells are well aerated. VASCULAR SYSTEM: Skull base flow voids intact. OTHER FINDINGS: No cerebellopontine angle masses noted. No tonsillar ectopia is appreciated. No sellar masses are seen. No cortical effacement is noted. IMPRESSION: No evidence of recent infarct or intracranial hemorrhage. Stable mild to moderate cerebral cortical atrophy and small vessel changes in the white matter tracts. This agrees with preliminary report.
--- NOTE | 2018-02-08 16:34 | CT ---
Date of service: 02/08/2018 PROCEDURE: CT of the Left shoulder without contrast HISTORY: s/p fall r/o fracture COMPARISON: Left shoulder x-ray 02/07/2018 TECHNIQUE: Contiguous axial images of the left shoulder were obtained. Coronal and sagittal reformats were generated. 3D MIP imaging was also obtained. This CT exam was performed using one or more of the following dose reduction techniques: Automated exposure control, adjustment of the mA and/or kV according to patient size, and/or use of iterative reconstruction technique. FINDINGS: BONES: No appreciable fracture or dislocation is identified. Left humeral shaft is intact. Bony scapula is intact. Visualized left clavicle and acromion are intact. No appreciable left rib fracture is noted. Left humeral head maintains normal position with the bony glenoid region. No AC joint widening is seen. No lytic process is seen. Degenerative changes of the left shoulder and AC joint are noted. Evaluation of the overlying soft tissues reveals nonspecific moderate soft tissue swelling and edema overlying the deltoid region which may be related to the patient's reported trauma. Other etiologies cannot be excluded including infection. Subcutaneous edema and skin thickening are noted. There is limited evaluation of the rotator cuff and tendons. Evaluation of the lungs reveals moderate chronic emphysematous changes with interstitial scarring, greatest in the left apex. LEFT HIP JOINT: Images were of the left shoulder. SOFT TISSUES: Overlying left shoulder soft tissue swelling. IMPRESSION: No appreciable left shoulder fracture or dislocation. Nonspecific moderate left upper extremity soft tissue swelling. This requires further clinical evaluation. MRI may prove helpful for further evaluation.
[2018-02-09 05:04] LABS: ALBUMIN 3.2 g/dL (3.5-5.0); ALT/SGPT 75 U/L (21-72); AST/SGOT 99 U/L (17-59); BLOOD UREA NITROGEN 12 mg/dl (9-20); CALCIUM 8.1 mg/dL (8.4-10.2); GFR NON-AFRICAN AMERICAN > 60
[2018-02-09] MEDS: Enoxaparin 40 mg Syringe SC SCH (08:34)
--- NOTE | 2018-02-09 11:50 | CP.PCM.PN ---
<Oma Cabrera - Last Filed: 02/09/18 12:41> Subjective - Date & Time of Evaluation Date of Evaluation: 02/09/18 Time of Evaluation: 11:49 - Subjective Subjective: Patient seen and examined this morning during rounding, no acute overnight events. Patient still reporting pain in his left shoulder. Noted swelling, and multiple abrasions in left shoulder/arm but able to move extremity. Moderate weakness appreciated. Denies tingling or numbness. Afebrile. Head MRI negtaive for acute infarct or ICH. Objective - Vital Signs/Intake and Output Vital Signs (last 24 hours): Temp Pulse Resp BP Pulse Ox 97.4 F L 90 20 123/70 95 02/09/18 08:38 02/09/18 08:38 02/09/18 08:38 02/09/18 08:38 02/09/18 08:38 - Medications Medications: Current Medications Aspirin (Aspirin Chewable) 81 mg PO DAILY [facility] Last Admin: 02/09/18 08:33 Dose: 81 mg Atorvastatin Calcium (Lipitor) 40 mg PO HS [facility] Last Admin: 02/08/18 21:43 Dose: 40 mg Clopidogrel Bisulfate (Plavix) 75 mg PO DAILY [facility] Last Admin: 02/09/18 08:35 Dose: 75 mg Enoxaparin Sodium (Lovenox) 40 mg SC DAILY [facility] PRN Reason: Protocol Last Admin: 02/09/18 08:34 Dose: 40 mg Ibuprofen (Motrin Tab) 400 mg PO Q6 PRN PRN Reason: Pain, moderate (4-7) Losartan Potassium (Cozaar) 50 mg PO DAILY [facility] Last Admin: 02/09/18 08:33 Dose: 50 mg Mupirocin (Bactroban Ointment) 1 applic TOP BID [facility] Pantoprazole Sodium (Protonix Ec Tab) 20 mg PO DAILY [facility] Tramadol HCl (Ultram) 50 mg PO Q12 PRN PRN Reason: Pain, moderate (4-7) - Labs Labs: 02/07/18 04:20 02/09/18 04:10 PT 13.4 Seconds (9.8-13.1) H 02/06/18 14:32 INR 1.2 02/06/18 14:32 APTT 30.5 Seconds (25.6-37.1) 02/06/18 14:32 - Constitutional Appears: No Acute Distress - Head Exam Head Exam: NORMAL INSPECTION - Eye Exam Eye Exam: EOMI, PERRL - Respiratory Exam Respiratory Exam: Clear to Ausculation Bilateral, NORMAL BREATHING PATTERN. absent: Rhonchi, Wheezes - Cardiovascular Exam Cardiovascular Exam: REGULAR RHYTHM. absent: Tachycardia - GI/Abdominal Exam GI & Abdominal Exam: Soft. absent: Distended, Tenderness - Extremities Exam Extremities Exam: Joint Swelling (L shoulder edema and multiple abrassions and blisters appreciated some with noted oozing.). absent: Calf Tenderness, Pedal Edema - Neurological Exam Neurological Exam: Alert, Awake Neuro motor strength exam: Left Upper Extremity: 5, Right Upper Extremity: 4, Left Lower Extremity: 5, Right Lower Extremity: 3 - Psychiatric Exam Psychiatric exam: Normal Affect - Skin Skin Exam: Dry, Warm Assessment and Plan - Assessment and Plan (Free Text) Assessment: 67 y/o male with PMHx of CVA with residual right sided hemiparesis and Multiple sclerosis as per MR, who presented to the ED brought by EMS for evaluation of multiples falls and slurred speech, admitted to r/o CVA. CT head done on admission reported no evidence of acute intracranial abnormality. Patient seen by Neurology, had a head MRI done on 02/06, still pending official report. Patient failed swallow eval on admission, but yesterday as per dietitian Pt's swallowing skills appear WFL for a finely chopped diet with thin liquids. PT evaluation recommended subacute rehab. Plan: Slurred speech -r/o CVA -associated with right sided weakness -suspected residual from prior CVA -Neuro check Q 4 h -CT head: reported as no evidence of intracranial abnormalities -CTA Head/Neck, reported as suboptimal study, no acute findings -MRI of Brain negative for acute infarct or ICH. -c/w Aspirin 81 mg PO -c/w on Plavix 75 PO QD -c/w Atorvastatin 40 PO QHS -PT eval and treatment -OT eval and treatment -Neuro consult by Dr Moreno, Recommendation appreciated Multiple recent falls -likely secondary to h/o CVA vs MS -x ray of left shoulder reported as normal, no evidence of Fx -x ray of left humerus reported as normal,no evidence of Fx -CT head: reported as no evidence of intracranial abnormalities -fall precautions protocol Left Shoulder Pain -s/p Fall -associated swelling and skin abrasions -x ray of left shoulder reported as normal, no evidence of Fx -L UE CT scan w/o contrast: No appreciable left shoulder fracture or dislocation. Nonspecific moderate left upper extremity soft tissue swelling. MRI may prove helpful for further evaluation. -pain control with Ultram -ICE packs -PT eval -Bactrobam on abrasions -Wound consult, input appreciated -Start Motrin 400 mg Q6H prn for pain and swelling. DVT prophylaxis -Lovenox 40 SC QD Code Status -Full code <Tati Cordon - Last Filed: 02/09/18 15:38> Objective - Vital Signs/Intake and Output Vital Signs (last 24 hours): Temp Pulse Resp BP Pulse Ox 97.8 F 55 L 20 118/75 99 02/09/18 12:00 02/09/18 12:00 02/09/18 12:00 02/09/18 12:00 02/09/18 12:00 - Medications Medications: Current Medications Aspirin (Aspirin Chewable) 81 mg PO DAILY [facility] Last Admin: 02/09/18 08:33 Dose: 81 mg Atorvastatin Calcium (Lipitor) 40 mg PO HS [facility] Last Admin: 02/08/18 21:43 Dose: 40 mg Clopidogrel Bisulfate (Plavix) 75 mg PO DAILY [facility] Last Admin: 02/09/18 08:35 Dose: 75 mg Enoxaparin Sodium (Lovenox) 40 mg SC DAILY [facility] PRN Reason: Protocol Last Admin: 02/09/18 08:34 Dose: 40 mg Ibuprofen (Motrin Tab) 400 mg PO Q6 PRN PRN Reason: Pain, moderate (4-7) Losartan Potassium (Cozaar) 50 mg PO DAILY [facility] Last Admin: 02/09/18 08:33 Dose: 50 mg Mupirocin (Bactroban Ointment) 1 applic TOP BID [facility] Pantoprazole Sodium (Protonix Ec Tab) 20 mg PO DAILY [facility] Last Admin: 02/09/18 13:42 Dose: 20 mg Tramadol HCl (Ultram) 50 mg PO Q12 PRN PRN Reason: Pain, severe (8-10) - Labs Labs: 02/07/18 04:20 02/09/18 04:10 PT 13.4 Seconds (9.8-13.1) H 02/06/18 14:32 INR 1.2 02/06/18 14:32 APTT 30.5 Seconds (25.6-37.1) 02/06/18 14:32 Attending/Attestation - Attestation I have personally seen and examined this patient.: Yes I have fully participated in the care of the patient.: Yes I have reviewed all pertinent clinical information, including history, physical exam and plan: Yes Notes (Text): Acute CVA ruled out -hx of Old CVA with residual righjt hemiparesis and slurred speech -- MRI of Brain : neg acute CVA - cont ASA, Plavix, statin Fall at home - plan fo d/c to [facility] in am Left Shoulder Trauma with pain - CT of shoulder - no fracture, soft tissue swelling
[2018-02-09] MEDS: Pantoprazole 20 mg EC Tab PO SCH (13:42)
[2018-02-10 05:39] LABS: BASO # 0.1 K/uL (0.0-0.2); BASO % 0.7 % (0.0-2.0); EOS # 0.5 K/uL (0.0-0.7); EOS % 4.5 % (0.0-4.0); HEMOGLOBIN 14.3 g/dL (12.0-18.0); LYMPH % 19.4 % (20.0-40.0); MEAN CELL VOLUME 86.9 fl (80.0-94.0); MEAN CORPUSCULAR HEMOGLOBIN 29.1 pg (27.0-31.0); MEAN CORPUSCULAR HGB CONC 33.5 g/dL (33.0-37.0); MEAN PLATELET VOLUME 8.9 fl (7.2-11.7); MONO % 10.2 % (0.0-10.0); NEUT # 6.6 K/uL (1.8-7.0); NEUT % 65.2 % (50.0-75.0); RBC 4.89 Mil/uL (4.40-5.90); RED CELL DISTRIBUTION WIDTH 13.3 % (11.5-14.5); WHITE BLOOD COUNT 10.2 K/uL (4.8-10.8)
[2018-02-10 06:05] LABS: ALBUMIN 3.3 g/dL (3.5-5.0); ALT/SGPT 73 U/L (21-72); AST/SGOT 84 U/L (17-59); BLOOD UREA NITROGEN 18 mg/dl (9-20); CALCIUM 8.5 mg/dL (8.4-10.2); GFR NON-AFRICAN AMERICAN > 60
[2018-02-10] MEDS: Enoxaparin 40 mg Syringe SC SCH (07:59)
[2018-02-10] MEDS: Pantoprazole 20 mg EC Tab PO SCH (08:01)
--- NOTE | 2018-02-10 10:22 | CP.PCM.PN ---
Subjective - Date & Time of Evaluation Date of Evaluation: 02/10/18 Time of Evaluation: 10:22 - Subjective Subjective: Patient seen and examined this morning during rounding, no acute overnight events. Patient reports feeling better still having some pain in L shoulder but improved from yesterday. Less swelling appreciated. Moderate weakness appreciated. Denies tingling or numbness. Afebrile. Objective - Vital Signs/Intake and Output Vital Signs (last 24 hours): Temp Pulse Resp BP Pulse Ox 97.5 F L 92 H 16 112/75 96 02/10/18 07:55 02/10/18 09:00 02/10/18 07:55 02/10/18 08:01 02/10/18 07:55 - Medications Medications: Current Medications Aspirin (Aspirin Chewable) 81 mg PO DAILY [facility] Last Admin: 02/10/18 08:02 Dose: 81 mg Atorvastatin Calcium (Lipitor) 40 mg PO HS [facility] Last Admin: 02/09/18 21:26 Dose: 40 mg Clopidogrel Bisulfate (Plavix) 75 mg PO DAILY [facility] Last Admin: 02/10/18 08:00 Dose: 75 mg Enoxaparin Sodium (Lovenox) 40 mg SC DAILY [facility] PRN Reason: Protocol Last Admin: 02/10/18 07:59 Dose: 40 mg Ibuprofen (Motrin Tab) 400 mg PO Q6 PRN PRN Reason: Pain, moderate (4-7) Losartan Potassium (Cozaar) 50 mg PO DAILY [facility] Last Admin: 02/10/18 08:01 Dose: 50 mg Mupirocin (Bactroban Ointment) 1 applic TOP BID [facility] Last Admin: 02/10/18 08:02 Dose: 1 applic Pantoprazole Sodium (Protonix Ec Tab) 20 mg PO DAILY [facility] Last Admin: 02/10/18 08:01 Dose: 20 mg Tramadol HCl (Ultram) 50 mg PO Q12 PRN PRN Reason: Pain, severe (8-10) - Labs Labs: 02/10/18 04:35 02/10/18 04:35 PT 13.4 Seconds (9.8-13.1) H 02/06/18 14:32 INR 1.2 02/06/18 14:32 APTT 30.5 Seconds (25.6-37.1) 02/06/18 14:32 - Constitutional Appears: No Acute Distress - Head Exam Head Exam: NORMAL INSPECTION - Eye Exam Eye Exam: EOMI, PERRL - ENT Exam ENT Exam: Mucous Membranes Moist - Respiratory Exam Respiratory Exam: Clear to Ausculation Bilateral. absent: Rales, Rhonchi, Wheezes - Cardiovascular Exam Cardiovascular Exam: Tachycardia, REGULAR RHYTHM. absent: Murmur - GI/Abdominal Exam GI & Abdominal Exam: Soft, Normal Bowel Sounds. absent: Distended, Tenderness - Extremities Exam Extremities Exam: absent: Calf Tenderness, Pedal Edema Additional comments: LUE: shoulder swelling better from yesterday, limited ROM due to pain but able to move and lift arm. Multiple abrasions noted likely secondary to fall. - Neurological Exam Neurological Exam: Alert, Awake, Oriented x3 Neuro motor strength exam: Left Upper Extremity: 5, Right Upper Extremity: 4, Left Lower Extremity: 4, Right Lower Extremity: 3 - Psychiatric Exam Psychiatric exam: Normal Mood - Skin Skin Exam: Abrasion (multiple noted on L shoulder, no oozing or bleeding noted.) , Warm Assessment and Plan - Assessment and Plan (Free Text) Assessment: 67 y/o male with PMHx of CVA with residual right sided hemiparesis and Multiple sclerosis as per MR, who presented to the ED brought by EMS for evaluation of multiples falls and slurred speech, admitted to r/o CVA. CT head done on admission reported no evidence of acute intracranial abnormality. Patient seen by Neurology, had a head MRI done on 02/06, still pending official report. Patient failed swallow eval on admission, but yesterday as per dietitian Pt's swallowing skills appear WFL for a finely chopped diet with thin liquids. PT evaluation recommended subacute rehab. Plan: Slurred speech - associated with right sided weakness - suspected residual from prior CVA - CT head: reported as no evidence of intracranial abnormalities - CTA Head/Neck, reported as suboptimal study, no acute findings - MRI of Brain negative for acute infarct or ICH. - c/w Aspirin 81 mg PO - c/w on Plavix 75 PO QD - c/w Atorvastatin 40 PO QHS - PT/OT eval and treatment - Neuro consult by Dr Moreno, Recommendation appreciated Left Shoulder Pain - s/p Fall - associated swelling and skin abrasions - x ray of left shoulder reported as normal, no evidence of Fx - L UE CT scan w/o contrast: No appreciable left shoulder fracture or dislocation. Nonspecific moderate left upper extremity soft tissue swelling. MRI may prove helpful for further evaluation. - pain control with Ultram and Motrin - ICE packs - Bactrobam on abrasions - Wound consult, input appreciated Multiple recent falls - likely secondary to h/o CVA vs MS - x ray of left shoulder reported as normal, no evidence of Fx - x ray of left humerus reported as normal,no evidence of Fx - CT head: reported as no evidence of intracranial abnormalities - fall precautions protocol DVT prophylaxis - Lovenox 40 SC QD Code Status - Full code
[2018-02-10] MEDS: Lidocaine 5% Patch TD SCH (14:22)
[2018-02-11 00:33] VITALS: RESP 18
--- NOTE | 2018-02-11 09:07 | CP.PCM.DIS ---
Provider - Provider Date of Admission: 02/08/18 08:45 Attending physician: Sathish Angel MD Consults: Neurology: Dr Moreno. 02/06/18 19:40 Wound Care [Nursing Referral for Wound Care] Routine Comment: Physician Instructions: Reason For Exam: right upper buttock area wound, multiple LE abrasi Time Spent in preparation of Discharge (in minutes): 30 Hospital Course - Lab Results Lab Results: Micro Results 02/06/18 16:33 Urine,Catheterized Urine Culture - Final No Growth (<1,000 CFU/ML) Most Recent Lab Values WBC 10.2 K/uL (4.8-10.8) 02/10/18 04:35 RBC 4.89 Mil/uL (4.40-5.90) 02/10/18 04:35 Hgb 14.3 g/dL (12.0-18.0) 02/10/18 04:35 Hct 42.5 % (35.0-51.0) 02/10/18 04:35 MCV 86.9 fl (80.0-94.0) 02/10/18 04:35 MCH 29.1 pg (27.0-31.0) 02/10/18 04:35 MCHC 33.5 g/dL (33.0-37.0) 02/10/18 04:35 RDW 13.3 % (11.5-14.5) 02/10/18 04:35 Plt Count 264 K/uL (130-400) 02/10/18 04:35 MPV 8.9 fl (7.2-11.7) 02/10/18 04:35 Neut % (Auto) 65.2 % (50.0-75.0) 02/10/18 04:35 Lymph % (Auto) 19.4 % (20.0-40.0) L 02/10/18 04:35 Traill % (Auto) 10.2 % (0.0-10.0) H 02/10/18 04:35 Eos % (Auto) 4.5 % (0.0-4.0) H 02/10/18 04:35 Baso % (Auto) 0.7 % (0.0-2.0) 02/10/18 04:35 Neut # (Auto) 6.6 K/uL (1.8-7.0) 02/10/18 04:35 Lymph # (Auto) 2.0 K/uL (1.0-4.3) 02/10/18 04:35 Traill # (Auto) 1.0 K/uL (0.0-0.8) H 02/10/18 04:35 Eos # (Auto) 0.5 K/uL (0.0-0.7) 02/10/18 04:35 Baso # (Auto) 0.1 K/uL (0.0-0.2) 02/10/18 04:35 Neutrophils % (Manual) 86 % (42-75) H 02/06/18 13:51 Lymphocytes % (Manual) 8 % (20-50) L 02/06/18 13:51 Monocytes % (Manual) 6 % (0-10) 02/06/18 13:51 Platelet Estimate Normal (NORMAL) 02/06/18 13:51 RBC Morphology Normal (NORMAL) 02/06/18 13:51 PT 13.4 Seconds (9.8-13.1) H 02/06/18 14:32 INR 1.2 02/06/18 14:32 APTT 30.5 Seconds (25.6-37.1) 02/06/18 14:32 Sodium 140 mmol/l (132-148) 02/10/18 04:35 Potassium 3.7 MMOL/L (3.6-5.0) 02/10/18 04:35 Chloride 107 mmol/L (98-107) 02/10/18 04:35 Carbon Dioxide 27 mmol/L (22-30) 02/10/18 04:35 Anion Gap 10 (10-20) 02/10/18 04:35 BUN 18 mg/dl (9-20) 02/10/18 04:35 Creatinine 0.8 mg/dl (0.8-1.5) 02/10/18 04:35 Est GFR ( Amer) > 60 02/10/18 04:35 Est GFR (Non-Af Amer) > 60 02/10/18 04:35 POC Glucose (mg/dL) 122 mg/dL (65-110) H 02/06/18 13:21 Random Glucose 108 mg/dL (75-110) 02/10/18 04:35 Hemoglobin A1c 5.9 % (4.2-6.5) 02/06/18 13:51 Calcium 8.5 mg/dL (8.4-10.2) 02/10/18 04:35 Total Bilirubin 0.7 mg/dl (0.2-1.3) 02/10/18 04:35 AST 84 U/L (17-59) H 02/10/18 04:35 ALT 73 U/L (21-72) H 02/10/18 04:35 Alkaline Phosphatase 61 U/L (38-126) 02/10/18 04:35 Troponin I < 0.0120 ng/mL (0.00-0.120) 02/06/18 13:51 Total Protein 6.6 G/DL (6.3-8.2) 02/10/18 04:35 Albumin 3.3 g/dL (3.5-5.0) L 02/10/18 04:35 Globulin 3.4 gm/dL (2.2-3.9) 02/10/18 04:35 Albumin/Globulin Ratio 1.0 (1.0-2.1) 02/10/18 04:35 Triglycerides 71 mg/DL (0-149) D 02/06/18 13:51 Cholesterol 115 mg/dL (0-199) 02/06/18 13:51 LDL Cholesterol Direct 58 mg/dL (0-129) 02/06/18 13:51 HDL Cholesterol 32 MG/DL (30-70) 02/06/18 13:51 Urine Color Yellow (YELLOW) 02/06/18 16:33 Urine Clarity Cloudy (Clear) 02/06/18 16:33 Urine pH 5.0 (5.0-8.0) 02/06/18 16:33 Ur Specific Badin 1.025 (1.003-1.030) 02/06/18 16:33 Urine Protein 100 mg/dL (NEGATIVE) 02/06/18 16:33 Urine Glucose (UA) Neg mg/dL (Normal) 02/06/18 16:33 Urine Ketones Negative mg/dL (NEGATIVE) 02/06/18 16:33 Urine Blood Large (NEGATIVE) 02/06/18 16:33 Urine Nitrate Negative (NEGATIVE) 02/06/18 16:33 Urine Bilirubin Negative (NEGATIVE) 02/06/18 16:33 Urine Urobilinogen 0.2-1.0 mg/dL (0.2-1.0) 02/06/18 16:33 Ur Leukocyte Esterase Neg Ga/uL (Negative) 02/06/18 16:33 Urine RBC (Auto) 16 /hpf (0-3) H 02/06/18 16:33 Urine Microscopic WBC 2 /hpf (0-5) 02/06/18 16:33 Urine Bacteria Rare (<OCC) 02/06/18 16:33 Blood Type O POSITIVE 02/06/18 15:11 Blood Type Confirm O POSITIVE 02/06/18 15:25 Antibody Screen Negative 02/06/18 15:11 BBK History Checked No verified bt 02/06/18 15:11 - Hospital Course Hospital Course: 67 y/o male with PMHx of CVA with residual right sided hemiparesis and Multiple sclerosis as per MR was [facility]. Patient presented to ER with slurred speech. Patient was found in his room in the floor. Head CT and MRI done on admission reported no evidence of acute intracranial abnormality. Patient seen by Neurology. Patient failed swallow eval on admission, but after OT and dietitian eval pt's swallowing skills appear WNL for a chopped diet with thin liquids. Patient also was c/o L shoulder pain and swelling after fall, x ray of left shoulder reported no evidence of Fx, UE CT scan w/o contrast: No appreciable left shoulder fracture or dislocation but moderate soft tissue swelling. Pain control with Ultram, lidoderm patch and ice packs. Patient noted to be with severe difficulty to moving around. PT recommended subacute rehab. Discharge Exam - Head Exam Head Exam: ATRAUMATIC, NORMAL INSPECTION, NORMOCEPHALIC - Eye Exam Eye Exam: EOMI, PERRL - ENT Exam ENT Exam: Mucous Membranes Moist - Respiratory Exam Respiratory Exam: Clear to PA & Lateral, NORMAL BREATHING PATTERN. absent: Chest Wall Tenderness - Cardiovascular Exam Cardiovascular Exam: REGULAR RHYTHM. absent: Tachycardia, Systolic Murmur - GI/Abdominal Exam GI & Abdominal Exam: Soft. absent: Distended, Tenderness - Extremities Exam Extremities exam: joint swelling (L shoulder, limited ROM, tender to touch.) - Neurological Exam Neurological exam: Alert, Motor Sensory Deficit (R side ), Oriented x3 - Psychiatric Exam Psychiatric exam: Normal Affect - Skin Skin Exam: Dry, Warm Additional comments: Several abrasions noted on L shoulder, healing. Discharge Plan - Follow Up Plan Condition: GOOD Disposition: REHAB FACILITY/REHAB UNIT Patient education suggested?: Yes
[2018-02-11 09:08] VITALS: BP 113/73; PULSE 98; TEMP 97.5; O2SAT 98
[2018-02-11] MEDS: Pantoprazole 20 mg EC Tab PO SCH (09:42)
[2018-02-11] MEDS: Enoxaparin 40 mg Syringe SC SCH (09:43)
[2018-02-11] MEDS: Lidocaine 5% Patch TD SCH (09:43)
== END 2018-02-11 12:49 | DRG 92 ==
LOC: H.ER 13:13 → H.ERHOLD 14:07 → H.TEL 17:14 → OBSVTOIN 02-08 08:45
PROVIDERS: ADMIT Internal Medicine; ATTEND Internal Medicine
DX: R29.6 Repeated falls (principal); I69.351 Hemiplegia and hemiparesis following cerebral infarction affecting right dominant side; E87.6 Hypokalemia; G35 Multiple sclerosis; I10 Essential (primary) hypertension; Z79.82 Long term (current) use of aspirin; Z82.5 Family history of asthma and other chronic lower respiratory diseases; Z91.81 History of falling; Z99.3 Dependence on wheelchair; I69.322 Dysarthria following cerebral infarction; M25.512 Pain in left shoulder; S40.212A Abrasion of left shoulder, initial encounter; R47.81 Slurred speech; W19.XXXA Unspecified fall, initial encounter; Y92.009 Unspecified place in unspecified non-institutional (private) residence as the place of occurrence of the external cause